=== PATIENT | male | born 1935 | race Caucasian/White ===

== ENCOUNTER 2017-05-01 07:46 | Day surgery (SDC) | payer MEDICARE, OTHER ==
--- NOTE | 2017-04-27 12:46 | PCM.ANEPRE ---
Anesthesia Pre-Op Review Reason for Review: cardiac hx Additional Comments 81 y/o male, who needs and AV fistula, with right heart failure and anasarca and ESRD. 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 Pt is optimized as much as possible. Will ask that diuretics be taken day of surgery. Dr. Gino Ramsey can do this under local with sedation. Ok to proceed. Chart Reviewed by: Devante Edwards MD Apr 27, 2017 12:46
[~2017-05-01] VITALS: Ht 182.9 cm; Wt 103.2 kg
[~2017-05-01 07:46] MED LIST: ACET-2605 PO; ASPI-973 PO; CALC0.257 PO; CeFAZolin 2 Gm/50 mL D5W IV Premix IV SCH; FIBERWELL; FINA5TAB9 PO; HYDR-3825 PO; INSU100V7 SUBQ; LEVO175T5 PO; LORA1TAB PO; MAGN250T29 PO; METO25TA6 PO; OXYB5TAB PO; PRAM1TAB3 PO; TAMS0.4C98 PO; TORS20TA3 PO; TRAM50TA2 PO; ZINC56OI2 TOP
[2017-05-01] MEDS ORDERED: fentaNYL-PF 50 mCg/mL 2 mL Inj ONE (07:47)
[2017-05-01] MEDS ORDERED: Phenylephrine/NS-PF 100 mCg/mL 5 mL Syringe IVPUSH ONE (07:47)
[2017-05-01] MEDS ORDERED: Propofol 10,000 mCg/mL 20 mL Inj ONE (07:47)
[2017-05-01] MEDS: 0.9% Sodium Chloride 500 ML IV SCH ×2 (08:00→10:49)
[2017-05-01 08:45] VITALS: BP 119/66; PULSE 74; RESP 18; O2SAT 94
[2017-05-01] MEDS ORDERED: tylenol PO (09:16)
[2017-05-01] MEDS ORDERED: Lactated Ringer's 1,000 ML IV SCH (10:08)
[2017-05-01] MEDS ORDERED: 0.9% Sodium Chloride 250 ML IV PRN (10:08)
--- NOTE | 2017-05-01 10:08 | PCM.HPANE ---
Patient Data Surgeon Admitting Provider: Attending Provider:Gino Ramsey MD Primary Care Physician:Butch Bradley MD Other Provider:María Elena Ambrocio Anesthesia Reason for Visit End-Stage Renal Failure Ht/WT & BMI Height (Feet): 6 Height (Inches): 0.00 Weight (Kilograms): 103.2 Body Mass Index 30.00 Allergies Coded Allergies: No Known Drug Allergies (Verified Allergy, Unknown, 12/22/16) Past Anesthesia History Anesthesia History: Denies:: Abnormal Airway, Anesthesia Reactions, Difficult Intubation, Fam Anesthesia Reaction, Fam Malignant Hypertherm, Malignant Hyperthermia Diabetes History Hx Diabetes?: Yes Type of Diabetes: Type II Glycemic Control: Insulin Dependent Current Bedside Blood Glucose: 94 MRSA MRSA: No Medications Blood Thinner: Aspirin Hypertension Medication: Yes Home Meds Incl Beta Mulu: Yes Previous Beta Mulu Dose >24: Previous Dose <24 Hours Reported Medications [tylenol] No Conflict [id number] Mg PO prn 05/01/17 [fiberwell] No Conflict Check1 Tab DAILY 04/27/17 Acetaminophen/Diphenhydramine (Tylenol Pm Ex-Strength Caplet)500 Mg-25 Mg Tablet1 Each PO PRN For Pain 04/27/17 Torsemide 20 Mg Myqrlc04 Mg PO DAILY 30 Days Ref 0 04/27/17 Tamsulosin (Flomax)0.4 Mg Capsule0.4 Mg PO DAILY Ref 0 04/27/17 Pramipexole Dihydrochloride (Mirapex)1 Mg Tablet1 Mg PO BID 04/27/17 Oxybutynin Chloride ER 5 Mg Tab.er.245 Mg PO DAILY Ref 0 04/27/17 Metoprolol Tartrate 25 Mg Tttzeg08.5 Mg PO BID 30 Days Ref 0 04/27/17 Magnesium Oxide (Magnesium)250 Mg Ikzmhx580 Mg PO DAILY 04/27/17 Levothyroxine 175 Mcg Oiwegd629 Mcg PO DAILY Ref 0 04/27/17 Insulin Glargine (Lantus U100 Insulin Vial)100 Unit/Ml Vial50 Unit SUBQ DAILY # 1 VIAL Ref 0 04/27/17 Finasteride 5 Mg Tablet5 Mg PO DAILY 30 Days Ref 0 04/27/17 Zinc Oxide (Desitin)60 Gm Cream..g.1 Applic TOP PRN PRN skin irritation #1 TUBE Ref 0 04/27/17 Discontinued Reported Medications Tramadol 50 Mg Ixexam56 Mg PO Q8H PRN For Pain Ref 0 04/27/17 Torsemide 20 Mg Qpfgvt84 Mg PO DAILY PRN wt gain greater than 2 pounds 30 Days Ref 0 04/27/17 Lorazepam 1 Mg Tablet1 Mg PO TID PRN For Anxiety Ref 0 04/27/17 Hydrocodone-Acetaminophen 7.5-325 mg 1 Each Tablet1 Tablet PO Q4H PRN For Pain Ref 0 04/27/17 Calcitriol (Rocaltrol)0.25 Mcg Capsule0.25 Mcg PO DAILY 04/27/17 Aspirin 81 Mg Wakrii20 Mg PO DAILY Ref 0 04/27/17 Zinc Oxide (Desitin)60 Gm Cream..g.1 Applic TOP PRN PRN For Laceration #1 TUBE Ref 0 12/21/16 Calcitriol (Rocaltrol)0.25 Mcg Capsule0.25 Mcg PO DAILY 12/21/16 Docusate Sodium (Colace)100 Mg Ezmcoct84 Mg PO TID PRN For Constipation Ref 0 12/21/16 Tramadol 50 Mg Diyxpk56 Mg PO Q8H PRN For Pain Ref 0 09/19/16 Acetaminophen 500 Mg Tablet1,000 Mg PO DAILY PRN For Pain 09/19/16 Tamsulosin (Flomax)0.4 Mg Capsule0.4 Mg PO DAILY Ref 0 09/19/16 Pramipexole Dihydrochloride 1 Mg Tablet1 Mg PO BID 09/19/16 Oxybutynin Chloride ER 5 Mg Tab.er.245 Mg PO DAILY Ref 0 09/19/16 Insulin Aspart (NovoLOG U-100 Pen)100 Unit/Ml Insuln.pen10 Units SQ TIDWM PRN Hyperglycemia 09/19/16 Polyethylene Glycol 3350 (Miralax)17 Gm Powd.pack17 Gm PO DAILY 09/19/16 Magnesium Oxide (Magnesium)250 Mg Xuldso121 Mg PO DAILY 09/19/16 Lorazepam 1 Mg Tablet1 Mg PO Evening PRN For Insomnia Ref 0 09/19/16 Levothyroxine 175 Mcg Envjkc062 Mcg PO DAILY Ref 0 09/19/16 Insulin Glargine (Lantus U100 Solostar Insulin Pen)100 Unit/1 Ml Insuln.pen40 Units SQ MORNING #15 09/19/16 Hydrocodone-Acetaminophen 7.5-325 mg 1 Each Tablet1 Tablet PO Q6H PRN For Pain Ref 0 09/19/16 Finasteride 5 Mg Tablet5 Mg PO daily/pm 30 Days Ref 0 09/19/16 Inulin/Sorbitol (Fiber Choice Chewable Tablet)1.5 Gram Tab.chew1.5 Gm PO DAILY 09/19/16 Aspirin 81 Mg Bncgwd16 Mg PO DAILY PRN For Pain Ref 0 09/19/16 Discontinued Scripts Torsemide 20 Mg Ekhpik76 Mg PO BID #80 TABLET Ref 0 Prov:Warner Lim MD 09/22/16 Metoprolol Tartrate 25 Mg Fffnoz92.5 Mg PO BID #20 TABLET Ref 0 Prov:Warner Lim MD 09/22/16 History History of ENT Problems?: Yes HEENT History: Positive for:: Hearing Problem Denies:: Abnormal Airway Cataracts Difficult Intubation Dysphagia Glaucoma Sinus Problem TMJ Denture Type: Full- Upper Full- Lower Teeth Condition: Within Normal Limits Hx of Heart Problems?: Yes Cardiovascular History: Positive for:: Cardiac Surgery (MVR and Bypass 1998) Congestive Heart Failure Edema (anasarca) Heart Murmur Hypertension Denies:: Chest Pain Valvular Heart Disease (mitral valve replacement, last echo 02/2017- ef 55-60%) Other Cardiac History: Echo reviewed. < 4METS. Hx of Respiratory Problem?: Yes Respiratory History: Positive for:: Chest Surgery (open heart) Use of C-PAP Machine (per , intolerant of CPAP) Denies:: Asthma Dyspnea Oxygen Administration Pneumonia Tuberculosis Hx Neurologic Problems?: Yes Neurological History: Positive for:: CVA (possible "small strokes") Dizziness (First thing in the morning) Denies:: Multiple Sclerosis Parkinson's Disease Seizures Other Neurological Pertinent: recent fall with hitting head, scalp contusion- states ED visit to [facility] with CT- no treatment, no LOC with fall Hx of GI Problems?: Yes Hx of Problems?: Yes (ESRD) Genitourinary History: Positive for:: HX of Hemodialysis (3xweekly in [place] thru tunnel cath, ESRF) Male Hx: Denies:: Prostate Problems Scrotal Mass Testicular Surgery Skin History: Positive for:: History Skin Disorders? (skin sores arms from scratching ) Hx Musculoskeletal Problems?: Yes Musculoskeletal History: Positive for:: Back Injury (scoliosis, states steroid injection hx ) Musculoskeletal Trauma (repetitive falls- hip injury- non operative= pt current uses w/c) Osteoarthritis Denies:: Fibromyalgia Joint Replacement Myasthenia Gravis Systemic Lupus Hx of Psycho/Social Problems?: No Psycho Social History: Positive for:: Anxiety (lorazepam prn) Hx Depression (not treated at this time) Hx Surgeries?: Yes (CABG, MVR) Hx Any Other Health Problems?: Yes Other History: Positive for:: Hospitalization Thyroid Disease Denies:: Cancer History Blood Transfusions: Positive for:: Blood Transfusions Denies:: Blood Transfuse Reaction Hx Diabetes: YesBedside Blood Glucose: 94 Hx Alcohol Use: NoHx Substance Use: No Smoking Status: Former Smoker Have You Smoked inLast 12 mo: No Stop/Bang P-Blood Pressure: treated: Yes B- Body Mass Index > 35 kg/m2: No A- Age over 50: Yes N- Neck Large Circumference: No G- Gender Male: Yes SUSANA Risk Assessment: High Risk, =/>3 Yes Risk Assessment Category Category 1A: Patient has history of documented sleep apnea, and HAS NOT received any narcotic, sedative or anesthesia administration during this stay. Category 1B: Patient has history of documented sleep apnea, and HAS received any narcotic , sedative or anesthesia administration during this stay Category 2: Patient has SUSPECTED Obstructive Sleep Apnea, and HAS received any narcotic , sedative or anesthesia administration during this stay. Category 3: Patient has SUSPECTED Obstructive Sleep Apnea and HAS NOT received narcotic, sedative or anesthesia administration during this stay. Category 4: Outpatient in Procedural Areas with known sleep apnea or who screen positive for High Risk via the STOP/BANG questionnaire. Exam Exam Vital Signs Vital Signs Date Time Temp Pulse Resp B/P Pulse Ox O2 Delivery O2 Flow Rate FiO2 05/01/17 08:45 35.6 74 18 119/66 94 Room Air 05/01/17 08:45 CPAP/BIPAP General Appearance: Alert, Oriented X3, Cooperative, Other (very [place], needs redirection) HEENT/AIRWAY: MP 3 Lungs: Clear to Auscultation, Normal Air Movement Heart: Regular Rate/Rhythm Meds/Labs/Diagnostics Admission Meds Current Medications Sodium Chloride (Normal Saline) 500 ml @ 10 mls/hr Q24H IV Last administered on 05/01/17t 08:00; Start 05/01/17 at 05:00; Stop 05/03/17 at 06:59 Bedside Blood Glucose: 94 Labs Test 05/01/17 08:52 Plan Impression Patient chart reviewed, patient interviewed and anesthestic plan with risks, benefits, and alternatives discussed, and informed consent obtained. NPO per Anesth. Guidelines: Yes ASA Physical Status: ASA3 Severe Disease Anesthetic Plan: MAC Bene/Risks/Altern/Consents: Yes HP Complete Prior to Induction: Yes Alonso Jenkins MD May 01, 2017 09:08
[2017-05-01] MEDS ORDERED: Labetalol 5 mg/mL 4 mL Inj IV PRN (10:10)
[2017-05-01] MEDS ORDERED: Phenylephrine 10,000 mCg/mL Inj IVPUSH PRN (10:10)
[2017-05-01] MEDS ORDERED: EPHEDrine Sulfate 50 mg/mL Inj IVPUSH PRN (10:10)
[2017-05-01] MEDS ORDERED: Ondansetron 2 mg/mL 2 mL Inj IVPUSH PRN (10:10)
[2017-05-01] MEDS ORDERED: Atropine 0.4 mg/mL Inj IVPUSH PRN (10:10)
[2017-05-01] MEDS ORDERED: fentaNYL-PF 50 mCg/mL 2 mL Inj IVPUSH PRN (10:10)
[2017-05-01] MEDS ORDERED: Bupivacaine-MPF 0.5% 30 mL Inj INFILTRATE ONE (10:48)
[2017-05-01] MEDS ORDERED: Heparin 1,000 Unit/mL 10 mL Inj IRRIGATION ONE (10:49)
[2017-05-01] MEDS ORDERED: Papaverine 30 mg/mL 2 mL Inj XX ONE (11:37)
[2017-05-01] MEDS ORDERED: HYDROcodone-APAP 5-325 mg Tablet PO PRN (13:25)
[2017-05-01 13:30] VITALS: BP 110/64; PULSE 75; RESP 16; O2SAT 98
[2017-05-01 13:39] VITALS: BP 110/67; PULSE 74; RESP 16; O2SAT 100
--- NOTE | 2017-05-01 13:46 | PCM.ANEP1 ---
Post Anesthesia PACU Phase 1 Assessment Vital Signs Vital Signs Date Time Temp Pulse Resp B/P Pulse Ox O2 Delivery O2 Flow Rate FiO2 05/01/17 13:39 74 16 110/67 100 Simple Mask 10 05/01/17 13:30 36.3 75 16 110/64 98 Simple Mask 15 05/01/17 08:45 35.6 74 18 119/66 94 Room Air 05/01/17 08:45 CPAP/BIPAP Anesthetic Administered: MAC Level of Alertness: Sleepy, easy to arouse MEJIAS's with Equal Strength: Yes Pain: No Nausea or Vomiting: No CV Function & Hydration Stable: Yes Airway Device: Oxygen Delivery: Simple Mask Lungs: Clear to Auscultation, Normal Air Movement PACU Phase 2 Assessment Complications: No Follow up Care: N/A Patient Instructions Provided: N/A Alonso Jenkins MD May 01, 2017 13:46
[2017-05-01 14:00] VITALS: BP 106/60; PULSE 70; RESP 16; O2SAT 100
--- NOTE | 2017-05-01 14:37 | OP ---
[address] [address] OPERATIVE REPORT PATIENT: ARNLADO ROBISON : 1935 MR#: [id number] ADMIT: 05/01/2017 JOB ID: [id number] DATE OF SURGERY: 05/01/2017 PREOPERATIVE DIAGNOSIS(ES): End-stage renal failure. POSTOPERATIVE DIAGNOSIS(ES): End-stage renal failure. PROCEDURE: Right brachiocephalic arteriovenous fistula. SURGEON: Gino Ramsey MD ASSISTANTS: Emmie Montgomery PA-C and Vito Rees PA-C INDICATIONS: An 81-year-old man who has end-stage renal failure. He is being dialyzed through a tunneled catheter. I saw him six months ago, at which time, he was uncertain if he wanted to go through dialysis. He subsequently did start on dialysis. He has right heart failure and has had inadequate right upper arm basilic vein and a borderline right upper arm cephalic vein. But on physical examination, his cephalic vein did seem adequate. He subsequently has decided to have a fistula, and so after discussing options with the patient, it was elected to proceed first with right brachiocephalic AV fistula. FINDINGS: The cephalic vein in the antecubital fossa was adequate. He had an arterial Doppler signal in his right upper arm cephalic vein at the conclusion of the procedure. He had an easily palpable right radial pulse. He did have oozing from multiple tiny branches of his vein; perhaps because of his previous elevated right-sided pressures from his right ventricular failure. DESCRIPTION OF PROCEDURE: At the beginning and end of the operation, the SCOAP checklist was completed. He received deep sedation of local anesthesia with 1% lidocaine and 0.5% bupivacaine. Using Betadine, he was prepped and draped in usual fashion and he received preoperative antibiotics. A right antecubital incision was made. The vein was identified and dissected down to the distal branch point. He actually had a "H" pattern of his antecubital veins. I elected to preserve the distal inflow into the basilic vein, but to do so, there was a common wall of the basilic and cephalic branches. After getting proximal and distal control of both the cephalic and basilic vein, I divided this common wall and then with 6-0 Prolene repaired the basilic wall. I ultimately used this opening of the cephalic vein and the distal branch as the cook for the anastomosis. The distal branches of the cephalic branch were ligated with 3-0 silk. The vein was divided and flushed with heparinized saline. The artery was exposed, controlled proximally and distally with vessel loops and small branches divided with clips. The artery was opened longitudinally, flushed proximally and distally with heparinized saline. The anastomosis to the cook of the cephalic vein was then performed with running 6-0 Prolene. [place] through the anastomosis, I flushed the vein with papaverine. After completing the anastomosis, there was first forward flushing into the vein and then backward flushing into the vein followed again by repeating that process and then forward flow was resumed into the hand with results as stated above. As stated above, there was bleeding from small branches of the vein which I think in most cases would have thrombosed. But, I do think that this might be reflective of chronic right-sided elevated venous pressures. These were controlled with 6-0 Prolene. Clips placed transversely and cautery. I also used FloSeal. The incision was closed with running 5-0 Vicryl. Dermabond was placed over the incision. The estimated blood loss was 30 cc. There were no apparent complications. The final sponge, needle and instrument counts were announced as correct and he was returned to recovery in stable condition. Critical assistance was provided by Emmie Montgomery PA-C and NINO Taylor, which will allow completion of the operation.
== END 2017-05-01 23:59 | disposition home or self-care (01) ==
LOC: SAS 07:46
PROVIDERS: ATTEND Surgery
DX: I13.2 Hypertensive heart and chronic kidney disease with heart failure and with stage 5 chronic kidney disease, or end stage renal disease (principal); N18.6 End stage renal disease; I50.9 Heart failure, unspecified; G47.30 Sleep apnea, unspecified; E10.9 Type 1 diabetes mellitus without complications; E03.9 Hypothyroidism, unspecified; E78.2 Mixed hyperlipidemia; Z95.1 Presence of aortocoronary bypass graft; Z99.2 Dependence on renal dialysis; Z95.2 Presence of prosthetic heart valve; Z87.891 Personal history of nicotine dependence; Z79.4 Long term (current) use of insulin; Z79.82 Long term (current) use of aspirin
CPT/HCPCS: 36415; 36818; 84132; J0690; J1644; J2250; J2370; J3010; J7040; J7050

== ENCOUNTER 2017-05-05 15:12 | Emergency (ER) | payer MEDICARE, OTHER ==
[~2017-05-05] VITALS: Ht 177.8 cm; Wt 104.5 kg
[~2017-05-05 15:12] MED LIST changes: -ASPI-973 PO; -CALC0.257 PO; -CeFAZolin 2 Gm/50 mL D5W IV Premix IV SCH; -HYDR-3825 PO; -LORA1TAB PO; -TRAM50TA2 PO; +tylenol PO
[2017-05-05 15:14] VITALS: BP 111/65; PULSE 61; RESP 20; O2SAT 98
--- NOTE | 2017-05-05 15:43 | ED.REPORT ---
HPI-General Illness Date of Service May 05, 2017 ED Provider: Himanshu Coffman MD An 81 year old, hard of hearing male with a history of type I diabetes mellitus , end stage kidney failure s/p hemodialysis, CVA, CHF, hypertension and a mitral valve replacement presents to the ED following a fistula disfunction that occurred earlier this morning at dialysis. Patient had a right brachiocephalic AV fistula for dialysis performed on 05/01. He did receive his dialysis this morning and was sent to the ED for an ultrasound to identify the fistula dysfunction. also reports that the patient has been experiencing right leg, hip pain and weakness secondary to a recent GLF. Patient has had 3 GLF in the past week due to difficulty ambulating. He has also reportedly been "picking at a bug bite" with the insulin needle to relieve the discomfort. Nursing Notes Stated Complaint: ULTRASOUND FOR RIGHT LEG FISTULA Chief Complaint: General Complaint Nursing Notes Reviewed: Yes Allergies: Coded Allergies: No Known Drug Allergies (Verified Allergy, Unknown, 12/22/16) Scheduled ([fiberwell]) 1 TAB DAILY ([tylenol]) 500 MG PO prn Finasteride (Finasteride) 5 Mg Tablet 5 MG PO DAILY Insulin Glargine (Lantus U100 Insulin Vial) 100 Unit/Ml Vial 50 UNIT SUBQ DAILY Levothyroxine (Levothyroxine) 175 Mcg Tablet 175 MCG PO DAILY Magnesium Oxide (Magnesium) 250 Mg Tablet 250 MG PO DAILY Metoprolol Tartrate (Metoprolol Tartrate) 25 Mg Tablet 12.5 MG PO BID Oxybutynin Chloride ER (Oxybutynin Chloride ER) 5 Mg Tab.er.24 5 MG PO DAILY Pramipexole Dihydrochloride (Mirapex) 1 Mg Tablet 1 MG PO BID Tamsulosin (Flomax) 0.4 Mg Capsule 0.4 MG PO DAILY Torsemide (Torsemide) 20 Mg Tablet 40 MG PO DAILY Scheduled PRN Acetaminophen/Diphenhydramine (Tylenol Pm Ex-Strength Caplet) 500 Mg-25 Mg Tablet 1 EACH PO PRN For Pain Zinc Oxide (Desitin) 60 Gm Cream..g. 1 APPLIC TOP PRN PRN PRN skin irritation General Time Seen by : 15:42 Chief Complaint Other (fistula disfunction) Hx Obtained From: Patient Arrived By: Walk-in Sudden in Onset?: No Onset Occurred: 9 - 12 hours ago Symptom Duration: Since onset Location: : Arm right Quality: Painful Radiation: : Arm right Severity: Current: Mild Severity: Maximum: Moderate Associated with: Reports: Pain Pertinent Negative: Pt denies other symptoms Recent Healthcare: Recent doctor visit Past Medical History Past Medical History 1. CVA 2. Type I diabetes mellitus 3. End stage kidney failure 4. Congestive Heart Failure 5. Hypertension 6. Anxiety 7. Depression 8. C-PAP use at home 9. Osteoarthiritis 10. Chronic edema Past Surgical History Mitral valve replacement Open Heart surgery Right brachiocephalic arteriovenous fistula Smoking History Former Smoker Social History Other Social History: Good social support, , Local resident Ambulatory Status Wheelchair Review of Systems RUE bruit at dialysis this morning. Multiple irritated bug bites. Full Review of Systems Musculoskeletal: Reports: Extremity pain (right leg pain ), Joint pain (right hip pain ) Complete sys rev & neg: except as marked. Physical Exam Vital Signs Vital Signs Date Time Temp Pulse Resp B/P Pulse Ox O2 Delivery O2 Flow Rate FiO2 05/05/17 17:42 36.9 63 109/57 97 Room Air 05/05/17 15:14 36.6 61 20 111/65 98 Room Air Initial VS: Unavailable Head / Eyes: Atraumatic, Normocephalic, PERRL Neck: Supple, Non-tender, Full range of motion Extremities: Vascular intact, Neuro intact, No swelling, No tenderness Skin: Warm, Dry, No cyanosis Neurologic: Alert, Oriented, Nonfocal Psychiatric: Mood/affect normal, Behavior normal, Normal thought content General/Constitutional: Awake, Alert, No acute distress, Well appearing, Well developed Head / Eyes: Atraumatic, Normocephalic, PERRL Respiratory / Chest: Atraumatic, Breath sounds NL, Breath sounds = bilat, No respiratory distress Cardiovascular: Heart rate NL, Regular rhythm Heart Sounds / Murmur: Positive: Systolic murmur present.. (II/) Lower Ext Edema: Positive: Bilateral 2+ (Chronic) Abdomen: Atraumatic, Soft, Non-tender Re-Eval/Medical Decision Time of Eval: 16:25 Re-Evaluation/Progress Note: Pt is informed of the plan to obtain an US. All questions about the intended treatment plan are addressed. He understands and agrees with the plan. Counseled Regarding: Diagnosis, Lab results, Need for follow-up, When/why to return to ED Discharge & Departure Shift Change Sign-Out Patient Care Transferred: Yes Discussed Complaint(s): Yes Imaging Studies: Done, await radiologist Dr. Finley Primary Impression: AV fistula occlusion Encounter type: initial encounter Qualified Code: T82.898A - Other specified complication of vascular prosthetic devices, implants and grafts, initial encounter Additional Impression: Pelvic pain Disposition: Home Discharge Condition All VS Reviewed: Yes Condition: Improved Referrals: Butch Bradley MD (PCP) Care Transferred to: Dr. Finley Care Transferred at: 18:00 Kenyatta Attestation Portions of this note were transcribed by Bolivar Madsen. I, Dr. Coffman personally performed the history, physical exam and medical decision-making; I reviewed and confirmed the accuracy of the information in the transcribed note. Signed by: Kenyatta Hummel, 05/05/17 1800. copies to: Butch Bradley MD, Kirk H MD May 05, 2017 15:43 BOLIVAR MADSEN May 05, 2017 15:45
[2017-05-05 17:42] VITALS: BP 109/57; PULSE 63; O2SAT 97
--- NOTE | 2017-05-05 18:12 | DRSVH ---
PROCEDURE: CT PELVIS WITHOUT CONTRAST ([id number]) INDICATIONS: trauma TECHNIQUE: Noncontrast 3 mm axial sections acquired through the bony pelvis, with coronal and sagittal reformatt ing. COMPARISON: [facility], , [id number] W PEL IF PERFORMED, 04/20/2017, 18:56. FINDINGS: Image quality: Excellent. Bones: There is a mildly comminuted avulsion fracture of the right greater trochanter along the inser tion of the gluteus medius tendon. There is proximal displacement by approximately 2.5 cm. There ar e also minimally displaced fractures of the right sacral ala extending to the sacroiliac joint. Soft tissues: There is edema and fluid associated with the avulsion fracture of the greater trochante r. No definite joint effusions. No free intraperitoneal fluid. There is ectasia of the visualized aorta and iliac arteries. IMPRESSION: 1. Avulsion fracture of the right greater trochanter. 2. Right sacral alar fractures. Dictated by: Ilia Valencia M.D. on 05/05/2017 at 18:05 Approved by: Ilia Valencia M.D. on 05/05/2017 at 18:11
[2017-05-05 20:45] VITALS: BP 122/71; PULSE 73; O2SAT 97
--- NOTE | 2017-05-05 21:14 | DRSVH ---
PROCEDURE: US AV FISTULA MAP ARM, RIGHT INDICATIONS: CHECK FOR OCCLUSION IN FISTULA TECHNIQUE: Color and pulse Doppler interrogation was performed of the upper extremity fistula with image documen tation. COMPARISON: [facility], US, US ARTERY ARM DPLX BILAT, 10/16/2016, 15:01. [facility] Ultrasound, US, US VENOUS ARM DPLX BILAT, 10/16/2016, 15:01. FINDINGS: The proximal, mid, and distal fistula appear patent with appropriate velocities and waveforms. The b rachial artery demonstrates patent flow proximal and distal to the fistula with normal wave forms. IMPRESSION: 1. No evidence of fistula occlusion. Dictated by: Ilia Valencia M.D. on 05/05/2017 at 21:00 Approved by: Ilia Valencia M.D. on 05/05/2017 at 21:12
== END 2017-05-05 20:46 | disposition home or self-care (01) ==
LOC: SED 15:12
DX: T82.898A Other specified complication of vascular prosthetic devices, implants and grafts, initial encounter (principal); R10.2 Pelvic and perineal pain; Y84.8 Other medical procedures as the cause of abnormal reaction of the patient, or of later complication, without mention of misadventure at the time of the procedure; Y93.9 Activity, unspecified; Y92.9 Unspecified place or not applicable; Y99.9 Unspecified external cause status; I13.2 Hypertensive heart and chronic kidney disease with heart failure and with stage 5 chronic kidney disease, or end stage renal disease; I50.9 Heart failure, unspecified; N18.6 End stage renal disease; E10.22 Type 1 diabetes mellitus with diabetic chronic kidney disease; Z86.73 Personal history of transient ischemic attack (TIA), and cerebral infarction without residual deficits; Z87.891 Personal history of nicotine dependence; Z79.4 Long term (current) use of insulin; Z79.899 Other long term (current) drug therapy

== ENCOUNTER 2017-05-16 14:47 | Inpatient (IN) | payer MEDICARE, OTHER ==
[~2017-05-16] VITALS: Ht 177.8 cm; Wt 99.7 kg
[2017-05-16 17:22] VITALS: BP 121/78; PULSE 89; RESP 18; O2SAT 94
[2017-05-16] MEDS ORDERED: ACET-171 PO (17:39)
[2017-05-16] MEDS ORDERED: INSU100V7 SUBQ (17:39)
[2017-05-16] MEDS ORDERED: TRAM50TA2 PO (17:39)
[2017-05-16] MEDS ORDERED: FINA5TAB9 PO (17:39)
[2017-05-16] MEDS ORDERED: Ondansetron 2 mg/mL 2 mL Inj IVPUSH PRN (17:45)
[2017-05-16] MEDS ORDERED: Alum-Mag Hydrox-Simeth 30 mL Suspension PO PRN (17:45)
[2017-05-16] MEDS ORDERED: Polyethylene Glycol (PEG) 17 Gm Powder PO PRN (17:45)
[2017-05-16] MEDS ORDERED: OXYM30SP18 NS (17:46)
--- NOTE | 2017-05-16 18:16 | NUR ---
Arrival to [facility] room 1014 Pt transferred to [facility] from [facility]. Pt has fractured pelvis and has limited mobility. Pt is very [place], likes to "pick" at his skin, leaving skin tears. Pt is on dialysis, has a failed right AC fistula and has right chest HD cath. Pt is confused, bed alarm placed for safety
[2017-05-16 18:48] LABS: BASOPHILS % (AUTO) 0.8 % (0-3); EOSINOPHILS % (AUTO) 4.8 % (0-5); MONOCYTES % (AUTO) 11.9 % (4-12); Mean Corpuscular Hemoglobin 34.2 pg (27.0-35.0); Mean Corpuscular Volume 104.9 fL (81-100); NEUTROPHILS % (AUTO) 63.6 % (40-74); Platelet Count 112 bil/L (150-400)
[2017-05-16 20:31] VITALS: BP 125/68; PULSE 84; RESP 18; O2SAT 94
--- NOTE | 2017-05-16 20:36 | PCM.HPMED ---
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 Patient was transferred to us from [facility] ED due to patient's need for dialysis at this cannot be accomplished at their facility. Patient is really demented and unable to give a complete history. The patient repeatedly states that he is "confused" and would like to know why he is being held in long term. He states that he knows who he is. He was unaccompanied time of interview. Per report from [facility] patient had a difficult time getting home from dialysis and was unable to get out of the car yesterday. Reportedly the patient excluded himself into the house the patient's states that she found him confused this morning and was not able to wake him up. She states that this has happened frequently in the mornings to patient not being compliant with his CPAP machine. The patient is quite concerned about his inability to care for himself and fall risk. [facility] his bowels were stable. Temperature was 36.4, heart rate was 83, respiratory rate is 18, blood pressure 120/66, O2 saturations 96% on room air. Laboratory evaluation revealed a WBC count 5.4 hemoglobin 12.7 platelet count of 120 and a negative troponin. Two-view chest x -ray revealed patchy opacity at the left lung base which may represent pneumonia. Patient was treated for a presumed and was treated with azithromycin and Rocephin. He was transferred to our hospital due to his need for dialysis. Review of Systems: The patient is unable to have a competency review of systems due to his poor cognition. Allergies Coded Allergies: No Known Drug Allergies (Verified Allergy, Unknown, 12/22/16) Home Medications Finasteride [place] levothyroxine 175 g Oxybutynin Pramipexole Tramadol Magnesium 50 mg by mouth 3 times a day Tamsulosin Afrin spray Acetaminophen 1-5 units of insulin aspart Lantus 30 units subcutaneous daily Metoprolol tartrate 12.5 mg by mouth twice daily PMH His heart failure Hypertension Bowel disorder Sleep apnea on CPAP 50 diabetes Hypothyroidism ESRD on dialysis Frequent falls Dementia Surgical History Coronary artery bypass graft Valve replacement Femoropopliteal bypass cholecystectomy Knee replacement Family History Unable to obtain due to patient's poor cognition. Social History Hx Alcohol Use: No Hx Substance Use: No Hx Tobacco Use: No Smoking Status: Never Smoker Exam Vital Signs Vital Sign - Last Date Time Temp Pulse Resp B/P Pulse Ox O2 Delivery O2 Flow Rate FiO2 05/16/17 17:22 36.4 89 18 121/78 94 Room Air Exam General: No acute distress, well-developed, well-nourished, elderly male HEENT: Normocephalic, atraumatic. External ears without defect. Pupils equal, round, and reactive to light and accommodation. Anicteric sclerae, moist conjunctivae, and no lid lag. Oropharynx free of erythema and cobble stoning with moist mucosa. Neck: Supple with full range of motion. No jugular venous distension. No bruits. No lymphadenopathy or thyromegaly. Cardiovascular: Regular rate and rhythm with a systolic crescendo decrescendo murmur Pulmonary: Clear to auscultation bilaterally with no crackles, wheezes, or rhonchi. Normal respiratory effort with no use of accessory muscles. Abdomen: Bowel tones present. Soft, nontender, nondistended. No hepatosplenomegaly or masses appreciated. Extremities: No clubbing, cyanosis, edema, or lymphadenopathy appreciated. Skin: Normal temperature, turgor, and texture; no rash, ulcers, or subcutaneous nodules appreciated. Neurological: Cranial nerves grossly intact. Normal muscle strength, tone, and bulk. Reflexes, coordination, and sensory function within normal limits. Psychiatric: Normal mood and affect. Oriented only to self. 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 Patient was transferred to us from [facility] ED due to patient's need for dialysis at this cannot be accomplished at their facility. # Community acquired pneumonia, present on admission, active -Continue azithromycin and ceftriaxone. -CXR consistent with pneumonia -Afebrile, no leukocytosis, patient has change in mental status from baseline. Procalcitonin elevated - will call [facility] to see if any microbiology tests sent prior to antibiotics # Pelvic and trochanter fracture, present on admission, active -Morphine as needed for pain -Physical therapy evaluation # altered mental state on baseline dementia due to CAP -treatment as above # Chronic issues, present on admission: # SUSANA on CPAP -We will ask to bring home CPAP # ESRD on hemodialysis TTS -Nephrology should be notified tomorrow for dialysis # Advanced dementia -Social work consultation # Congestive heart failure, not in exacerbation # CAD s/p CABG -Continue home medications # Type 2 diabetes, insulin using -Continue home medications at a 30% reduction # Frequent falls and debilitation -Physical therapy evaluation CODE STATUS: DNR/DNI Patient is admitted under inpatient status with expected length of stay greater than 2 midnights due to severity of presenting symptoms, risk of adverse event, and complexity of treatment plan. VTE Prophylaxis: Sub-Q Heparin (Unfractionated) Resuscitation Status: DNR/DNI:Do Not Resuscitate/Intubate Time spent Patient was seen and examined with resident , I agree with the history , exam, assessment and plan as outlined above copies to: Butch Bradley MD, Viktoriya DO May 16, 2017 20:15 José Miguel Bello MD May 17, 2017 10:30
[2017-05-16] MEDS ORDERED: Glucose 40% Oral Gel 15 Gm Tube PO PRN (21:10)
[2017-05-16] MEDS: Insulin LISPRO 300 Unit/3 mL Inj SUBQ SCH (22:00)
[2017-05-16] MEDS ORDERED: 0.9% Sodium Chloride 100 ML ONE (22:53)
[2017-05-16] MEDS: cefTRIAXone Inj 2,000 MG in Dextrose 5% Minibag Plus 50 ML IV SCH (22:57)
[2017-05-17 00:14] VITALS: BP 148/96; PULSE 117; RESP 20; O2SAT 97
[2017-05-17] MEDS: HYDROmorphone 1 mg/mL Inj IVPUSH PRN ×2 (00:43→21:16)
[2017-05-17] MEDS: Heparin 5,000 Unit/mL Inj SUBQ SCH ×4 (00:43→23:41)
--- NOTE | 2017-05-17 07:49 | NUR ---
Confusion Pt has increase in confusion and agitation. PRN morphine given, not effective. Pt pulled out 1 IV, removed brief, clothing, oxygen and pulse ox monitor. Pt continued to try to get up OOB. Has pelvic fractures and very weak. Rec'd order from MD for zyprexa IM. Administered with minimal effects. Spoke to MD and requested a different pain med. Dilaudid ordered, administered and Pt was able to have relief for a short time but was still very active all night, moving in bed and trying to get up. Redirected and explained many times why he can not get up. Pt has severe dementia. Bed in low position, call light in reach, care continues.
[2017-05-17] MEDS: Insulin LISPRO 300 Unit/3 mL Inj SUBQ SCH ×4 (08:00→21:28)
[2017-05-17 08:03] VITALS: BP 127/84; PULSE 83; O2SAT 98
[2017-05-17] MEDS ORDERED: Non-Formulary Medication (Levothyroxine 175 MCG) PO SCH (08:30)
[2017-05-17 08:39] LABS: BASOPHILS % (AUTO) 0.9 % (0-3); MONOCYTES % (AUTO) 11.5 % (4-12); Mean Corpuscular Hemoglobin 34.7 pg (27.0-35.0); Mean Corpuscular Volume 103.4 fL (81-100); NEUTROPHILS % (AUTO) 55.5 % (40-74); Platelet Count 137 bil/L (150-400)
[2017-05-17 08:59] LABS: Magnesium 2.3 mg/dL (1.6-2.6)
--- NOTE | 2017-05-17 09:12 | DRSVH ---
PROCEDURE: X-RAY CHEST ONE VIEW, PORTABLE ([id number]) INDICATIONS: PNUEMONIA TECHNIQUE: One view of the chest was acquired. COMPARISON: Located Within [facility], CR, XR CHEST 2VW, 09/20/2016, 17:03. FINDINGS: Surgical changes and devices: Dialysis catheter and sternal wires are present. Lungs and pleura: Poor inspiratory effort is present. There are patchy areas of increased pulmonary v ascularity as well as increased appearance of opacity at the left base. Mediastinum: Mediastinal contours appear normal. Heart size is normal. Bones and chest wall: No suspicious bony lesions. Overlying soft tissues appear unremarkable. IMPRESSION: Poor inspiratory effort with appearance of mild left basilar/retrocardiac opacity. This m ay represent a pneumonia versus atelectasis. Dictated by: Anna Quiroz M.D. on 05/17/2017 at 9:09 Approved by: Anna Quiroz M.D. on 05/17/2017 at 9:10
--- NOTE | 2017-05-17 09:37 | DRSVH ---
PROCEDURE: X-RAY PELVIS, ONE OR TWO VIEWS ([id number]) INDICATIONS: PELVIC FRACTURE TECHNIQUE: 2 view(s) of the pelvis acquired. COMPARISON: Pelvis 04/20/2017 FINDINGS: Bones: The corticated bony density lateral to the right femoral neck appears to represent old avulsio n of the greater trochanter, unchanged from last study. No acute fracture seen. No suspicious bony le sions. The inferior sacroiliac joints appear sclerotic and irregular. Soft tissues: Visualized bowel gas pattern is normal. Vascular calcifications. IMPRESSION: 1. No acute fractures seen in the pelvis or proximal femurs. If acute fracture is suspected, CT imagi ng is suggested. 2. Remote avulsion right greater trochanter. 3. Bilateral degenerative sacroiliac arthritis. Dictated by: Mike Rose M.D. on 05/17/2017 at 9:31 Approved by: Mike Rose M.D. on 05/17/2017 at 9:35
--- NOTE | 2017-05-17 13:34 | NUR ---
Evaluation completed. Please go to "Notes" then click on "Assessments and Notes" (bottom left corner of screen). Then select appropriate discipline tab on top of screen.
[2017-05-17 13:55] VITALS: BP 119/60; PULSE 67; RESP 18; O2SAT 97
--- NOTE | 2017-05-17 14:00 | NUR ---
Dialysis Pt leave to dialysis on 1-2L NC as needed while sleeping. Sitter at bedside as pt has baseline dementia and restlessness with agitation. Addendum: 05/17/17 at 1947 by VAL PARR RN Pt returns from dialysis @ 1820 with sitter at bedside.
--- NOTE | 2017-05-17 14:17 | NUR ---
Palliative care note D/A: Palliative care referral received from Dr. Mott today. Referral is for goals of care. Note that pt is a dialysis pt who recently was admitted to [facility] for care of a trochanter and pelvic fracture. He is also known to have dementia, CHF and CAD. Pt was transferred to [facility] for care of same as well as his need for dialysis. 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 Pt spouse is Annmarie Lee and can be reached at [phone] and [phone]. His friend Jameel Carolina can be reached at [phone]. Review of chart reveals that pt has DPOA document from 2011. His first choice of decision maker is his spouse Annmarie and then Chantel Springer who can be reached at [phone]. His third choice of decision maker is Annette Benson at [phone]. P: Palliative care to follow. Mirtha MEEHAN, CCM
[2017-05-17 14:19] VITALS: BP 103/75; PULSE 74
--- NOTE | 2017-05-17 15:11 | PCM.PNMED ---
Subjective Date of Service May 17, 2017 Subjective Patient remains confused. Oriented to place only. Afebrile. No family member at bedside to describe his mental status. Exam Vital Signs Vital Sign - Last Date Time Temp Pulse Resp B/P Pulse Ox O2 Delivery O2 Flow Rate FiO2 05/17/17 13:55 36.5 67 18 119/60 97 Nasal Cannula 1.00 Intake and Output 05/16/17 05/16/17 05/17/17 Cumulative From/Thru 15:00 23:00 07:00 05/16/17 18:10 - 05/17/17 06:19 Intake Total 237 ml 50 ml 287 ml Output Total 100 ml 100 ml Balance 137 ml 50 ml 187 ml Intake Oral 237 ml 0 ml 237 ml IV Total 50 ml 50 ml Output Urine Total 100 ml 100 ml # Voids 2 2 # Bowel Movements 0 0 Exam General: No acute distress, well-developed, well-nourished, elderly male HEENT: Normocephalic, atraumatic. External ears without defect. Pupils equal, round, and reactive to light and accommodation. Anicteric sclerae, moist conjunctivae, and no lid lag. Oropharynx free of erythema and cobble stoning with moist mucosa. Neck: Supple with full range of motion. No jugular venous distension. No bruits. No lymphadenopathy or thyromegaly. Cardiovascular: Regular rate and rhythm with a systolic crescendo decrescendo murmur Pulmonary: Clear to auscultation bilaterally with no crackles, wheezes, or rhonchi. Normal respiratory effort with no use of accessory muscles. Abdomen: Bowel tones present. Soft, nontender, nondistended. No hepatosplenomegaly or masses appreciated. Extremities: No clubbing, cyanosis, edema, or lymphadenopathy appreciated. Skin: Normal temperature, turgor, and texture; no rash, ulcers, or subcutaneous nodules appreciated. Neurological: Cranial nerves grossly intact. Normal muscle strength, tone, and bulk. Reflexes, coordination, and sensory function within normal limits. Psychiatric: Normal mood and affect. Oriented only to self. IVs and Medications Medications Reviewed: Medications were reviewed in detail Lab and Diagnostics Result Diagram: 05/17/17 0810 05/17/17 0810 X-Rays, CTs and MRIs PROCEDURE: X-RAY PELVIS, ONE OR TWO VIEWS ([id number]) INDICATIONS: PELVIC FRACTURE IMPRESSION: 1. No acute fractures seen in the pelvis or proximal femurs. If acute fracture is suspected, CT imaging is suggested. 2. Remote avulsion right greater trochanter. 3. Bilateral degenerative sacroiliac arthritis Dictated by: Mike Rose M.D. on 05/17/2017 at 9:31 PROCEDURE: X-RAY CHEST ONE VIEW, PORTABLE ([id number]) INDICATIONS: PNUEMONIA IMPRESSION: Poor inspiratory effort with appearance of mild left basilar/ retrocardiac opacity. This may represent a pneumonia versus atelectasis. Dictated by: Anna Quiroz M.D. 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 Patient was transferred to us from [facility] ED due to patient's need for dialysis at this cannot be accomplished at their facility. # Community acquired pneumonia, present on admission, active -Continue azithromycin and ceftriaxone. -CXR consistent with pneumonia -Afebrile, no leukocytosis, patient has change in mental status from baseline. Procalcitonin elevated - will call [facility] to see if any microbiology tests sent prior to antibiotics # Recent Pelvic and trochanter fracture, present on admission, active -Morphine as needed for pain -Physical therapy evaluation # altered mental state on baseline dementia due to CAP -treatment as above Chronic issues, present on admission: # SUSANA on CPAP -We will ask to bring home CPAP # ESRD on hemodialysis TTS -Nephrology notified # Advanced dementia -Social work consultation # Congestive heart failure, not in exacerbation # CAD s/p CABG -Continue home medications # Type 2 diabetes, insulin using -Continue home medications at a 30% reduction # Frequent falls and debilitation -Physical therapy evaluation CODE STATUS: DNR/DNI Patient is admitted under inpatient status with expected length of stay greater than 2 midnights due to severity of presenting symptoms, risk of adverse event, and complexity of treatment plan. Disposition: Pending PT eval and recommendation. reportedly unable to care for him. May need to go to nursing home facility at least for short time VTE Prophylaxis: Sub-Q Heparin (Unfractionated) Resuscitation Status: DNR/DNI:Do Not Resuscitate/Intubate José Miguel Bello MD May 17, 2017 15:11
--- NOTE | 2017-05-17 15:29 | NUR ---
To Dialysis Pt transported via bed by staff to [facility] for dialysis with sitter at bedside.
--- NOTE | 2017-05-17 15:42 | CONS ---
[address] [address] CONSULTATION REPORT PATIENT: ARNALDO ROBISON : 1935 MR#: [id number] ADMIT: 05/16/2017 JOB ID: [id number] DATE OF SERVICE: 05/17/2017 RENAL CONSULTATION: HISTORY: The patient is an unfortunate 81-year-old white male who has a history of multiple medical problems including end-stage renal disease and advanced dementia. He was transferred from [facility] where he presented there following a fall and a possible hip fracture. He has a history of end-stage renal disease and renal consultation is being sought for further evaluation and management of his chronic kidney disease. Unfortunately the patient has advanced dementia and is unable to give me much meaningful information. Majority of the history has been obtained from the patient's chart. As noted above. He has a history of significant dementia and following a fall. There was no new fracture at that time, and he was transferred to [facility] because of lack of dialysis services at [facility]. Little other information as far as the recent history is known. Apparently, he dialyzes on Sunday, , and Sunday and today is his normal dialysis day. PAST MEDICAL HISTORY: Is significant for: 1. End-stage renal disease. 2. Diabetes. 3. Hypertension with hypertensive heart disease and hypertensive nephrosclerosis. 4. Congestive heart failure. 5. Sleep apnea. 6. Dementia. 7. Hypothyroidism. 8. Prostatic hypertrophy. 9. Osteoarthritis. PAST SURGICAL HISTORY: Is significant for: 1. Coronary artery bypass graft. 2. Some type of cardiac valve replacement. 3. Cholecystectomy. 4. Femoral/popliteal bypass graft. 5. Knee replacement. ALLERGIES: He is not allergic to any food or any medication. SOCIAL HISTORY: He denies use of alcohol, tobacco or illicit drugs. MEDICATIONS: At time of admission include finasteride, levothyroxine, oxybutynin, omeprazole, tramadol, magnesium, tamsulosin, insulin and metoprolol. FAMILY HISTORY/REVIEW OF SYSTEMS: Unobtainable because of the patient's dementia. PHYSICAL EXAMINATION: Revealed a debilitated, chronically ill appearing 81-year-old white male who was awake but unable to provide any information. He was unable to answer the simplest of questions. His blood pressure was 148/86 with a heart rate of 87. HEENT examination is remarkable for pale sclerae. Neck is supple without adenopathy, thyromegaly or jugular venous distention. Lungs showed some hyperresonance of both lung odonnell and some scattered rhonchi noted. Heart was irregularly irregular. Abdomen is soft without any tenderness, rebound, guarding, masses or hepatosplenomegaly. Extremities did not show any evidence of any clubbing, cyanosis or edema. Skin turgor is good. LABORATORY EXAMINATION: His hemoglobin today was 13.1, sodium was 142, potassium 3.9, chloride of 102, bicarbonate 23, BUN and creatinine were 37 and 3.9 respectively. IMPRESSION: 1. End-stage renal disease-dialysis dependent. 2. Diabetic nephropathy. 3. Hypertension with hypertensive heart disease and hypertensive nephrosclerosis. 4. Dementia. RECOMMENDATION: The patient is to be dialyzed today for 3.5 hours on a 2 potassium bath. No heparin, 400 blood flow, 600 dialysate flow and will try to take 1-2 L. In light of the patient's significant dementia, I would strongly urge palliative care consult and discussion with the family as far as continuation of dialysis as it does not appear to be benefitting this unfortunate patient. Once again, I would like to thank you for allowing me to participate in the care of this pleasant, but unfortunate patient. I will be following him closely with you.
--- NOTE | 2017-05-17 18:10 | NUR ---
Dialysis note: 3 1/2 hours tx 2000 ml net UF Right catheter, dsg changed, no s/s of infection noted Pls see DTR for VS details Qb 400 Heparin given O2 @ 2L via NC on Pt confused, gets restless and anxious, sitter at bedside in to visit and pt more cooperative and relaxed Catheter flushed, heparin dwelled and secured Stable condition at end of tx Report given to Pallavi HANSEN
[2017-05-17 18:24] VITALS: BP 106/64; PULSE 76; RESP 18; O2SAT 98
[2017-05-17 19:42] VITALS: BP 114/65; PULSE 80; RESP 18; O2SAT 98
[2017-05-17] MEDS: cefTRIAXone Inj 2,000 MG in Dextrose 5% Minibag Plus 50 ML IV SCH (19:47)
[2017-05-17] MEDS: Insulin GLARgine 100 Unit/mL Syringe SUBQ SCH (21:27)
[2017-05-18] MEDS: HYDROmorphone 1 mg/mL Inj IVPUSH PRN (00:54)
--- NOTE | 2017-05-18 02:39 | NUR ---
Confusion/agitation Pt showing s/sx of pain, dilaudid given with + results. Pt has baseline dementia and started shift very pleasant. As the night proceeded Pt became more and more confused, agitated and was pulling at all lines, removing clothes and brief. Sitter at bedside. All sources of agitation and confusion exhausted. Pt given IM zyprexa with minimal results. Dilaudid was given per PRN orders and Pt eventually fell asleep for short time. Continues to have sitter at bedside. Care continues
[2017-05-18 04:23] VITALS: BP 113/66; PULSE 68; RESP 14; O2SAT 99
--- NOTE | 2017-05-18 04:45 | NUR ---
Restraints Pt very confused, baseline dementia, worse at night and began pulling at lines, removing clothes and brief and trying to get OOB. Px meds have been given per orders, zyprexa was used, both only allowed Pt to rest for a few minutes at a time. All needs met, unable to redirect, continued to be agitated becoming more aggressive. Sitter at bedside. Phoned MD and rec'd order for soft restraints to be applied. Applied soft restraints to arms and 1 leg. Sitter continues to be at bedside. Pt tolerating. Care continues
[2017-05-18] MEDS: Insulin LISPRO 300 Unit/3 mL Inj SUBQ SCH ×4 (08:00→21:16)
[2017-05-18] MEDS: Heparin 5,000 Unit/mL Inj SUBQ SCH ×2 (08:04→17:58)
--- NOTE | 2017-05-18 08:37 | PCM.CONPAL ---
Date of Service May 18, 2017 Date of Hospital Admission: May 16, 2017 at 17:15 Date of Palliative Consult: May 18, 2017 Requesting Provider: José Miguel Bello MD Reason Palliative Care Consult: Other Symptoms (delirium symptom management coordinated by Dr. Bello and Dr. Hector), Goals of Care Discussion Reason for Consultation Palliative care referral received from Dr. Mott today. Referral is for goals of care. Note that pt is a dialysis pt who recently was admitted to [facility] for care of a trochanter and pelvic fracture. He is also known to have dementia, CHF and CAD. Pt was transferred to [facility] for care of same as well as his need for dialysis. Pt spouse is Annmarie Lee and can be reached at [phone] and [phone]. His friend Jameel Carolina can be reached at [phone]. Review of chart reveals that pt has DPOA document from 2011. His first choice of decision maker is his spouse Annmarie and then Chantel Springer who can be reached at [phone]. His third choice of decision maker is Annette Benson at . Hospital Unit @time of consult: Orthopedic/Surgical Care (Room 1014) Palliative Care Recommendation Summary of palliative recommendations: Symptom management (Pain/other): By my exam today, pt is actively delirious, he is inattentive to his surroundings. Also has baseline some dementia (extent unclear, given active delirium now. My plan is to ask more about his baseline when she arrives). 1. First step is to eliminate medications that may contribute to delirium: stay away from benzodiazepines. --D/C pramipexole, can cause delirium and not recommended in dialysis patients as then risk of delirium is higher. 2. Agree with anti-psychotics: prefer seroquel scheduled to olanzapine. --Start 12.5mg seroquel BID and d/c all olanzapine for now. Monitor for need for prn seroquel. Over weekend, order prn seroquel if pt has more agitation between scheduled doses. 3. Pain, can contribute to delirium is inadequately treated. Agree with opiates , but suggest d/c all IV and start scheduled low dose oxycodone (better in renal failure) --oxycodone 5mg po AC and HS with prn 5mg q 4 hour as needed for hip/ trochanter fracture pain and musculoskeletal pain. 4. Bowel regimen: advance to Senna 1 po BID scheduled. If no BM q other day, needs suppository or enema to be proactive against opiate induced constipation. 5. Consider workup for other metabolic causes for delirium if it does not improve with treatment of CAP. 6. Delirium may also be hospital-induced. DPOA/Advanced Directives/POLST: 1. Code Status per EMR is DNR/DNI 2. No prior POLST on chart. Pt has a DPOA document completed in 2011. 1st POA is Annmarie Lee, his . Alternate POA is Chantel Springer who can be reached at [phone]. His third choice of decision maker is Annette Benson at [phone]. 3. POA is , Annmarie Lee. Pall Team will meet with her this afternoon . 4. Capacity? Pt is not capacitated currently. Unclear whether he is capacitated at baseline as degree of dementia at baseline is not known. In March 2017, he was able to interact independently with [facility], but fell asleep while talking to her due to SUSANA. In March 2017, he was also interactive with Cardiology at [facility] who completed a DOREEN while he had IV sedation. Hospice eligibility: From his DOREEN in March 2017, although he has severe tricuspid and mitral valve regurgitaion with some moderate right heart failure, his EF then was 55-60% so he would not be a hospice candidate based on his heart failure. His cognition is likely primarily impaired by poor oxygenation as a result of SUSANA with noncompliance of CPAP machine over many months. However, if his family elects to stop dialysis, he is likely eligible for hospice on basis of end-stage renal failure. Although the time frame is difficult to predict as the patient is not anuric, and may have some limited kidney filtering function. We would need advise from nephrology re: prognosis. Family/emotional support: 1. Annmarie Lee: [phone] 2. His friend Jameel Carolina can be reached at [phone]. Counseling: Palliative Care's James Hector and Jackie met today (05/18) with Annmarie Lee. See discussion below. Patient's functional baseline: relates a long progressive cognitive deterioration of her which she attributes to "not getting enough oxygen to his brain." She says he knew he had SUSANA x 10 years but that he is claustrophobic and unable to bear a face mask for many years. Finally in Jul 2016, he had another sleep study and agreed to try the CPAP machine at his ' s urging. Unfortunately it took months to get an mask that fit well and he did not start using the good mask until March 2017. In the interim he has had more episodes of confusion, troubles with walking, falling asleep during the day, hypotension and hypoglycemic episodes (usually after dialysis). Family Goals for patient: after considerable discussion, Mrs. Lee discloses that she can no longer help her transfer, or get up after he falls. She feels unable to care for him at home any longer. She is not sure what to do. She has spoken to her 's children and they have told her it is time to stop dialysis, as his life has had very poor quality and he spends a lot of time in bed at home or in a dialysis bed getting dialyzed. She agrees that it is time to stop dialysis and is sorrowful that this means her will soon. She remembers what a wonderful man he has been to her over the past 10 years and how much she will miss him. POLST: Mrs. Lee signed a POLST today (05/18) that states: DNR/Comfort measures/ No more dialysis/use antibiotics if needed to keep pt comfortable during an infection (determine on case by case need) and artificial tube feeding. Copies given to her. Original put in chart. Copy in Palliative [facility] office. Recommend: We need estimated prognosis from Dr. Mott or another evp managing director on staff here to tell us how long pt might live now that dialysis is being stopped per family request. Discharge Planning: likely to a nursing facility on [facility] near [place]. and CM have been given each other's phone numbers. CM plans to see on SundayMay 19 at 10a.m. in pt's room. Unclear yet, whether pt qualifies for hospice once off dialysis, this decision could be deferred until after pt moved to a facility and his ability to improve in strength monitored, especially if PT feels he could benefit from short term rehab for strengthening first. Spiritual support: Dr. Hector asked hospital otto Светлана to offer support of on SundayMay 21. Problems: Resuscitation Status Resuscitation Status: DNR/DNI:Do Not Resuscitate/Intubate POLST Updates/Changes Previous POLST?: No POLST Last Review Date: May 18, 2017 Antibiotics: Determine Use or Limitations Artificially Admin Nutrition: No Artifical Nutrition by Tube POLST Discussed with: Health Care Agent (DPOAHC), Spouse/Other ( Annmarie Lee who is his primary POA/dpoahc) POLST Review Outcome: New Form Completed . 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 Patient was transferred to [facility] from [facility] due to patient' s need for dialysis that cannot be accomplished at their facility. On initial assessment here, he is confused and thinks he is being held in longterm. No family present with him at first. Later, available and reports he has been more confused in mornings because he is not compliant with his CPAP machine. Hospital Course: He is being treated for community acquired pneumonia with azithromycin/ceftriaxone. He has received prn dilaudid for pain, likely from recent pelvic and trochanter fracture, and his AMS with acute confusion likely related to CAP illness with some question that he has baseline dementia (not clear how severe or changed from baseline). is to bring in home CPAP. Dialysis has been resumed for TTS. Past Medical History Significant PMH Noted: Congestive heart failure Hypertension Bowel disorder SUSANA on CPAP Type 2 diabetes Hypothyroidism ESRD on dialysis Frequent falls Dementia Surgical History Right brachiocephalic arteriovenous fistula (April) Coronary artery bypass graft Valve replacement Femoropopliteal bypass cholecystectomy Knee replacement Family History Unable to obtain due to patient's AMS. Social History Hx Alcohol Use: No Hx Substance Use: No Hx Tobacco Use: No Smoking Status: Never Smoker Allergy Allergies Reviewed: Yes Medications Current Medications: Current Medications Heparin Sodium (Porcine) 5,000 unit Q8 SUBQ Last administered on 05/18/17 08:04 ; Admin Dose 5,000 UNIT; Start 05/17/17 at 00:30 Al Hydrox/Mg Hydrox/Simethicone 30 ml Q6H PRN PO; Start 05/16/17 at 17:45 Ondansetron HCl 4 to 8 mg Q4H PRN IVPUSH; Start 05/16/17 at 17:45 Senna 17.2 mg BID PRN PO; Start 05/16/17 at 17:45 Polyethylene Glycol 17 gm DAILY PRN PO; Start 05/16/17 at 17:45 Morphine Sulfate 1-2 mg Q4H PRN IV Last administered on 05/17/17 03:51; Admin Dose 2 MG; Start 05/16/17 at 17:45 Ceftriaxone Sodium/Dextrose/ Water 50 ml @ 100 mls/hr Q24H IV Last administered on 05/17/17 19:47; Admin Dose 100 MLS/HR; Start 05/16/17 at 18:00 Azithromycin 500 mg DAILY PO Last administered on 05/18/17 08:03; Admin Dose 500 MG; Start 05/17/17 at 08:30 Finasteride 5 mg HS PO Last administered on 05/17/17 19:48; Admin Dose 5 MG; Start 05/17/17 at 21:00 Metoprolol Tartrate 12.5 mg BID PO Last administered on 05/18/17 08:02; Admin Dose 12.5 MG; Start 05/17/17 at 08:30 Pramipexole 1 mg BID PO Last administered on 05/18/17 08:04; Admin Dose 1 MG; Start 05/17/17 at 08:30 Tamsulosin HCl 0.4 mg DAILY PO Last administered on 05/18/17 08:02; Admin Dose 0.4 MG; Start 05/17/17 at 08:30 Torsemide 40 mg DAILY PO Last administered on 05/18/17 08:01; Admin Dose 40 MG ; Start 05/17/17 at 08:30 Non-Formulary Medication 175 mcg DAILY PO; Start 05/17/17 at 08:30; Status UNV Insulin Glargine 20 unit HS SUBQ Last administered on 05/17/17 21:27; Admin Dose 20 UNIT; Start 05/17/17 at 21:00 Insulin Human Lispro Nutritional Dose to be given pr... [facility] SUBQ; Start at 22:00 Levothyroxine Sodium/ Levothyroxine Sodium 175 mcg DAILYAC PO Last administered on 05/18/17 08:01; Admin Dose 175 MCG; Start 05/17/17 at 07:30 Olanzapine 5 mg Q6H PRN IM Last administered on 05/17/17 23:38; Admin Dose 5 MG; Start 05/16/17 at 22:20 Hydromorphone HCl 1 mg Q4H PRN IVPUSH Last administered on 05/18/17 00:54; Admin Dose 1 MG; Start 05/17/17 at 00:30 Oxycodone HCl 5 mg Q4H PRN PO Last administered on 05/18/17 06:08; Admin Dose 5 MG; Start 05/18/17 at 04:50 Scheduled ([tylenol]) 500 MG PO prn Finasteride (Finasteride) 5 Mg Tablet 5 MG PO QPM Insulin Glargine (Lantus U100 Insulin Vial) 100 Unit/Ml Vial 30 UNIT SUBQ DAILY Levothyroxine (Levothyroxine) 175 Mcg Tablet 175 MCG PO DAILY Magnesium Oxide (Magnesium) 250 Mg Tablet 250 MG PO DAILY Metoprolol Tartrate (Metoprolol Tartrate) 25 Mg Tablet 12.5 MG PO BID Oxybutynin Chloride ER (Oxybutynin Chloride ER) 5 Mg Tab.er.24 5 MG PO DAILY Pramipexole Dihydrochloride (Mirapex) 1 Mg Tablet 1 MG PO BID Tamsulosin (Flomax) 0.4 Mg Capsule 0.4 MG PO DAILY Torsemide (Torsemide) 20 Mg Tablet 40 MG PO DAILY Scheduled PRN Tramadol (Tramadol) 50 Mg Tablet 50 MG PO TID PRN PRN For Pain Miscellaneous Medications Oxymetazoline HCl (Nasal Callands Sinus) 30 Ml Callands 30 ML NS Objective Findings Exam Vital Sign - Last Date Time Temp Pulse Resp B/P Pulse Ox O2 Delivery O2 Flow Rate FiO2 05/18/17 04:23 36.7 68 14 113/66 99 OxyMask 3.00 Intake and Output 05/17/17 05/17/17 05/18/17 Cumulative From/Thru 15:00 23:00 07:00 05/16/17 18:10 - 05/18/17 06:55 Intake Total 569 ml 275 ml 1131 ml Output Total 2000 ml 500 ml 2600 ml Balance -2000 ml 69 ml 275 ml -1469 ml Intake Oral 569 ml 200 ml 1006 ml IV Total 75 ml 125 ml Output Urine Total 500 ml 600 ml Ultrafiltrate 2000 ml 2000 ml # Voids 2 2 6 # Bowel Movements 0 0 0 General: Alert, Oriented, Person, No acute distress, Other HEENT: Atraumatic, Other (pupils pinpoint, unable to follow commands for EOM testing) Heart: Normal S1, S2, Systolic Murmur (in tricuspid area), Holosystolic Murmur (in mitral area) Lungs: Clear to Auscultation, Clear to Percussion, Normal Air Movement Abdomen: Bowel Tones x4, Soft, Non Tender Neuro: Arousable, Spontaneous Eye Opening, Other (inattentive to surroundings, hard to get pt to focus on interview questions) Extremities: Warm, Edema (1+) Addtional Information Mini-mental exam: His responses are mixed--> The year is 193, [address] is [place], it is daytime, I live in [place] in a house, 's name is Annmarie. He says they have been 10 years. Inattentive, delirious. baseline some dementia (extent unclear, given active delirium now) Lab/Diagnostics Lab and Imaging results reviewed in detail in EMR. Time spent Total time 70 minutes; >50% face to face with patient and/or family, providing counselling regarding plans and recommendations, and in care coordination with his/her medical teams. I also spent an additional 60 minutes counseling for advanced care planning with the patient/the patients family/the surrogate decision maker. Giulia Hector MD May 18, 2017 08:36
[2017-05-18 09:34] VITALS: BP 107/63; PULSE 85; RESP 18; O2SAT 100
[2017-05-18 10:54] VITALS: PULSE 72
[2017-05-18 11:15] LABS: APPEARANCE,URINE CLEAR (CLEAR,HAZY); COLOR,URINE DARK YELLOW (YELLOW); PH,URINE 5.5 (5.0-8.0)
[2017-05-18 11:16] LABS: OCCULT BLOOD,URINE NEGATIVE (NEGATIVE); UROBILINOGEN,URINE NORMAL (NORMAL)
[2017-05-18] MEDS: oxyCODONE 1 mg/mL 5 mL Liquid PO SCH ×2 (12:06→17:30)
--- NOTE | 2017-05-18 13:01 | PCM.PNNEPH ---
Subjective Date of Service May 18, 2017 Subjective Patient remains quite disoriented and intermittently agitated requiring a sitter at all times. Exam Vital Signs Vital Sign - Last Date Time Temp Pulse Resp B/P Pulse Ox O2 Delivery O2 Flow Rate FiO2 05/18/17 10:54 72 05/18/17 09:34 18 107/63 100 OxyMask 3.00 05/18/17 04:23 36.7 Intake and Output 05/17/17 05/17/17 05/18/17 Cumulative From/Thru 15:00 23:00 07:00 05/16/17 18:10 - 05/18/17 06:55 Intake Total 569 ml 275 ml 1131 ml Output Total 2000 ml 500 ml 2600 ml Balance -2000 ml 69 ml 275 ml -1469 ml Intake Oral 569 ml 200 ml 1006 ml IV Total 75 ml 125 ml Output Urine Total 500 ml 600 ml Ultrafiltrate 2000 ml 2000 ml # Voids 2 2 6 # Bowel Movements 0 0 0 Exam HEENT examination was remarkable for pale sclera. Neck is supple without adenopathy, thyromegaly, or jugular venous distention. Chest shows considerably increased AP diameter. Lungs were clear to auscultation. Heart was regular and rhythmical with a soft systolic murmur. Abdomen is soft without any tenderness, rebound, guarding, masses, or hepatosplenomegaly. Extremities do not show any evidence of any clubbing, cyanosis, or edema. Skin turgor is good. Lab and Diagnostics Result Diagram: 05/17/17 0810 05/17/17 0810 X-Rays, CTs and MRIs PROCEDURE: X-RAY PELVIS, ONE OR TWO VIEWS ([id number]) INDICATIONS: PELVIC FRACTURE IMPRESSION: 1. No acute fractures seen in the pelvis or proximal femurs. If acute fracture is suspected, CT imaging is suggested. 2. Remote avulsion right greater trochanter. 3. Bilateral degenerative sacroiliac arthritis Dictated by: Mike Rose M.D. on 05/17/2017 at 9:31 PROCEDURE: X-RAY CHEST ONE VIEW, PORTABLE ([id number]) INDICATIONS: PNUEMONIA IMPRESSION: Poor inspiratory effort with appearance of mild left basilar/ retrocardiac opacity. This may represent a pneumonia versus atelectasis. Dictated by: Anna Quiroz M.D. on 05/17/2017 at 9:09 Plan Impression Impression #1 end-stage renal disease dialysis dependent #2 chronic progressive dementia with acute features Recommendations #1 I appreciate palliative care is important and their assistance and potential disposition with this unfortunate patient. #2 Allis indicated otherwise he will make arrangements for his dialysis in the morning. Dmitry Mott DO May 18, 2017 13:01
--- NOTE | 2017-05-18 13:59 | PCM.PNMED ---
Subjective Date of Service May 18, 2017 Subjective Patient was agitated overnight. Requiring restraint and a sitter . Seroquel started today. Pramipexole discontinued. Remains afebrile. Remains confused. States he is in [facility]. Exam Vital Signs Vital Sign - Last Date Time Temp Pulse Resp B/P Pulse Ox O2 Delivery O2 Flow Rate FiO2 05/18/17 10:54 72 05/18/17 09:34 18 107/63 100 OxyMask 3.00 05/18/17 04:23 36.7 Intake and Output 05/17/17 05/17/17 05/18/17 Cumulative From/Thru 15:00 23:00 07:00 05/16/17 18:10 - 05/18/17 06:55 Intake Total 569 ml 275 ml 1131 ml Output Total 2000 ml 500 ml 2600 ml Balance -2000 ml 69 ml 275 ml -1469 ml Intake Oral 569 ml 200 ml 1006 ml IV Total 75 ml 125 ml Output Urine Total 500 ml 600 ml Ultrafiltrate 2000 ml 2000 ml # Voids 2 2 6 # Bowel Movements 0 0 0 Exam General: No acute distress, well-developed, well-nourished, elderly male HEENT: Normocephalic, atraumatic. External ears without defect. Pupils equal, round, and reactive to light and accommodation. Anicteric sclerae, moist conjunctivae, and no lid lag. Oropharynx free of erythema and cobble stoning with moist mucosa. Neck: Supple with full range of motion. No jugular venous distension. No bruits. No lymphadenopathy or thyromegaly. Cardiovascular: Regular rate and rhythm with a systolic crescendo decrescendo murmur Pulmonary: Clear to auscultation bilaterally with no crackles, wheezes, or rhonchi. Normal respiratory effort with no use of accessory muscles. Abdomen: Bowel tones present. Soft, nontender, nondistended. No hepatosplenomegaly or masses appreciated. Extremities: No clubbing, cyanosis, edema, or lymphadenopathy appreciated. Skin: Normal temperature, turgor, and texture; no rash, ulcers, or subcutaneous nodules appreciated. Neurological: Cranial nerves grossly intact. Normal muscle strength, tone, and bulk. Reflexes, coordination, and sensory function within normal limits. Psychiatric: Normal mood and affect. Oriented only to self. IVs and Medications Medications Reviewed: Medications were reviewed in detail Lab and Diagnostics Result Diagram: 05/17/17 0810 05/17/17 0810 X-Rays, CTs and MRIs PROCEDURE: X-RAY PELVIS, ONE OR TWO VIEWS ([id number]) INDICATIONS: PELVIC FRACTURE IMPRESSION: 1. No acute fractures seen in the pelvis or proximal femurs. If acute fracture is suspected, CT imaging is suggested. 2. Remote avulsion right greater trochanter. 3. Bilateral degenerative sacroiliac arthritis Dictated by: Mike Rose M.D. on 05/17/2017 at 9:31 PROCEDURE: X-RAY CHEST ONE VIEW, PORTABLE ([id number]) INDICATIONS: PNUEMONIA IMPRESSION: Poor inspiratory effort with appearance of mild left basilar/ retrocardiac opacity. This may represent a pneumonia versus atelectasis. Dictated by: Anna Quiroz M.D. 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 emergency department today due to get another fall today. Patient was transferred to us from [facility] ED due to patient's need for dialysis at this cannot be accomplished at their facility. # Community acquired pneumonia, present on admission, active -Continue azithromycin and ceftriaxone. -CXR consistent with pneumonia -Afebrile, no leukocytosis, patient has change in mental status from baseline. Procalcitonin elevated # delirium on dementia -Patient was agitated overnight. Requiring restraint and a sitter . Seroquel started today. Pramipexole discontinued. -Telemetry for QTC monitoring -Palliative Dr Hector on board # Recent Pelvic and trochanter fracture, present on admission, active -Morphine as needed for pain -Physical therapy evaluation, recommend halfway facility placement # altered mental state on baseline dementia due to CAP -treatment as above Chronic issues, present on admission: # SUSANA on CPAP -We will ask to bring home CPAP # ESRD on hemodialysis TTS -Nephrology notified # Advanced dementia -Social work consultation # Congestive heart failure, not in exacerbation # CAD s/p CABG -Continue home medications # Type 2 diabetes, insulin using -Continue home medications at a 30% reduction # Frequent falls and debilitation -Physical therapy evaluation CODE STATUS: DNR/DNI Patient is admitted under inpatient status with expected length of stay greater than 2 midnights due to severity of presenting symptoms, risk of adverse event, and complexity of treatment plan. Disposition: 1-2 days halfway facility VTE Prophylaxis: Sub-Q Heparin (Unfractionated) VTE Mechanical Devices: Intermittant Pneumatic CD Resuscitation Status: DNR/DNI:Do Not Resuscitate/Intubate José Miguel Bello MD May 18, 2017 13:59
[2017-05-18 14:01] VITALS: BP 129/44; PULSE 73; RESP 20; O2SAT 97
--- NOTE | 2017-05-18 16:32 | NUR ---
Restraints Discontinued Soft restraints discontinued today, 05/18 at 1300. Patient currently cooperative. Care is ongoing.
[2017-05-18 17:36] VITALS: BP 96/63; PULSE 102; RESP 18; O2SAT 92
[2017-05-18] MEDS: cefTRIAXone Inj 2,000 MG in Dextrose 5% Minibag Plus 50 ML IV SCH (17:57)
--- NOTE | 2017-05-18 18:11 | NUR ---
Mentation, Reorientation Patient continues to be somewhat confused and forgetful this shift, requires frequent reorientation and redirection. Care is ongoing.
[2017-05-18 19:33] VITALS: BP 110/70; PULSE 77; RESP 18; O2SAT 100
[2017-05-18] MEDS: Insulin GLARgine 100 Unit/mL Syringe SUBQ SCH (21:20)
[2017-05-19] VITALS (10 sets, daily range): BP systolic 108–131; BP diastolic 66–72; PULSE 71–88; RESP 16–20; O2SAT 85–97
[2017-05-19] MEDS: Heparin 5,000 Unit/mL Inj SUBQ SCH ×3 (01:21→16:22)
[2017-05-19] MEDS: oxyCODONE 1 mg/mL 5 mL Liquid PO SCH ×5 (01:30→22:00)
--- NOTE | 2017-05-19 02:28 | NUR ---
Mentation / pain Alert to self only. States he should be going to [place] soon. Unable to orientate to surroundings at night. Sitter at bedside for safety. Remains restless, no grimace or verbalizations of pain. Seroquel given and patient rested briefly then again restless. 5 mg oxycodone given and patient still restless. No bladder distension - voiding with urinal and assistance. Repositioned but consistently returns to lying on his back. Care ongoing.
[2017-05-19] MEDS: Insulin LISPRO 300 Unit/3 mL Inj SUBQ SCH ×4 (08:00→22:00)
--- NOTE | 2017-05-19 11:01 | NUR ---
Social Work: Initial Assessment/Multi-Disciplinary Rounds D: EMR reviewed. Pt is an 81 y/o male admitted for pneumonia, pleural effusion, and AMS per H&P. SW met with pt and spouse/DPOA at bedside to conduct initial assessment. Pt was not oriented to person, place, or time. SW confirmed that DPOA/advanced directive ppw is in hard chart. Per pt's spouse and diagnosis, pt has advanced dementia. SW completed initial assessment with pt and spouse at bedside. SW explained role and wrote phone number on white board. Pt's insurance is [employer] and [employer]. PCP is Butch Bradley MD. Pt does not have LTC benefits. Pt has VA benefits but is not service connected (per pt's spouse). Pt has hx at a SNF and with HH in [place]. Pt owns a 4WW, FWW, cane, seated walker, bedside commode, and a wheelchair. Pt uses a FWW for ambulation. Pt does not own or use any other DME. Pt needs assistance with all ADLs including toileting, feeding, meal prep, dressing, chores, and transportation. Pt does not drive. Pt is not independent at baseline. Pt lives in a single-story, level, home with 0 steps with his spouse in [place]. Palliative care notified SW regarding discharge planning. Pt's spouse requested to meet with SW. SW met with pt's spouse to discuss discharge planning. Palliative informed SW that pt's spouse and pt have decided to discontinue pt's dialysis. SW confirmed with Palliative that pt and spouse were counseled on risk factors associated with discontinuing dialysis. SW confirmed with pt and spouse that Palliative discussed risks associated with discontinuing dialysis. Pt's spouse stated she was counseled on risks by Palliative. SW met with pt's spouse who stated that it is her and her spouses final decision to discontinue dialysis. Pt's spouse stated that the dialysis is not helping pt and pt's mental functioning and memory has declined since going on dialysis. Pt's spouse stated pt is much better to work with and care for when pt is not on dialysis because dialysis makes pt agitated and confused. Based on Palliative notes, and pt's spouses statements, pt will be terminal without dialysis and spouse was informed that pt will only have 3-6 more weeks to live without dialysis. SW discussed this with pt's spouse. SW asked how pt's spouse felt about caring for pt at home prior to hospital stay. Pt's spouse stated that pt has been increasingly difficult to care for and needs total assistance with ADLs. Pt's spouse stated that she is constantly with pt and monitoring him because he poses a danger to himself if left alone. Pt's spouse stated she sleeps in front of the main entrance to the house at night to make sure he doesn't leave or get up to attempt and cook (pt loves to cook but has left the stove on in previous instances and is no longer able to cook due to safety reasons). Pt's spouse stated she wants the best care for pt and she just can't provide 24/7 care any longer. She doesn't feel she can keep pt safe at home without a caregiver. Pt's spouse states she has done everything she can for pt and just wants him to get better. Pt's spouse suggested that pt's mentation is much better off dialysis and that pt is "very strong willed" and may get better. Pt's spouse stated she "doesn't necessarily believe Palliative's determination of pt being terminal in 3-6 weeks." Pt's spouse stated that pt seems to be doing worse with Dialysis. SW discussed the ramifications of discontinuing dialysis and reinforced Palliatives extension course counselor regarding discontinuation. SW also stated that it is the pt's right to choose to discontinue dialysis. Pt's spouse stated they have made their final decision. Based on pt's choice, SW worked with pt's spouse on discharge planning options without dialysis. SW presented pt's spouse with options after confirming that pt and spouse have agreed to discontinue dialysis and that is their final decision. SW asked pt's spouse if going home was an option. Pt's spouse said she would need help. SW asked if pt's spouse can afford a private caregiver at home. Pt's spouse stated "after thinking about this from a safety perspective, I don't know if going home is going to be the safest option for him and me - even with a private caregiver." Pt's spouse would consider private pay but needs to discuss options with family first. 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 Pt's spouse stated that even with a 24/7 caregiver, she believes pt will need someone who knows how to care for pt's with dementia. SW asked if pt would be willing to consider hospice again. Pt's spouse stated that when pt was on hospice in the past, all they did was come in the home and check vitals. Pt's spouse stated she still had to clean pt after "defecating on the floor." Pt's spouse said she has cared for pt for so long and is struggling emotionally with the difficulties of 24/7 care. SW asked pt's spouse if she would be willing to pay privately for a SNF where Hospice could open with pt at SNF. Pt's spouse stated "the more I think about it, I think I would be open to a 'residential,' but will he just be left alone all day without anyone to watch over him?" SW confirmed that if pt would be provided care by SNF and hospice and pt would not be left alone. SW presented pt's spouse with 3 options to consider. Pt's spouse expressed she had no idea what to do and was feeling overwhelmed. IGGY wrote out options for pt to consider in order to help paint a picture of what each discharge plan might look like. Pt's spouse was appreciative of IGGY writing options out and stated that she felt better seeing some options written out. 1. IGGY presented the idea of pt going home without dialysis and no caregiver - where spouse would continue to care for pt 24/7 as she was doing prior to pt's hospital stay. SW encouraged pt's spouse to consider her and pt's safety at home without a caregiver. IGGY stated to pt's spouse that based on spouses concern for pt's safety - even with spouse providing 24/7 care - SW is concerned for pt and spouses safety. Pt's spouse agreed and stated "option 1 is not an option - I see now that I can no longer take care of him alone." Pt's spouse stated that pt's kids have been involved via phone but live in different states and are not able to help provide care for pt. Pt's spouse agreeable that returning home with pt and caring for pt alone 24/7 is not a safe or viable option anymore. 2. SW presented the idea of taking pt home with 24/7 private pay caregiver and opening hospice. Pt's spouse stated that pt would love to go home but pt's spouse is concerned that hospice wasn't much help in the past and "got in the way." SW went over hospice role and asked if pt would be interested in an informational visit (SW received MD order to coordinate hospice). Pt's spouse said she would not be opposed to having an informational visit but doesn't know if being home with 24/7 caregivers will be enough care for pt. Pt's spouse concerned that pt will bob around and get agitated with a stranger in their home 24 - pt's spouse also concerned about where caregiver would sleep. 3. SW presented option of privately paying for a SNF - pt will be off dialysis and terminal within 3-6 weeks per Palliative. SW confirmed that if pt's spouse is able to pay privately for SNF, hospice can open with pt at SNF. SW explained that insurance won't pay for both SNF and hospice. SW explained that insurance covers non terminally ill pt's with skillable needs for rehabilitation. SW explained that insurance covers Hospice when pt's are terminal and life expectancy is less than 6-months. Pt's spouse understood that hospice is a service that provides pt comfort and care when pt's are terminally ill, with less than 6-months to live. Pt understood that insurance won't cover a SNF rehab facility and Hospice when a pt is terminally ill and does not have a skillable need. SW confirmed with pt's spouse that hospice at home would be covered by insurance - private caregivers would not. SW provided Senior Resource Guide. SW confirmed with pt's spouse that hospice at a SNF would be covered by insurance - SNF stay would not be covered and would be out of pocket. SW confirmed with pt's spouse that pt and spouse can still continue dialysis if they choose. However, if they choose not continue dialysis, pt would not be able to discharge without a safe discharge plan. SW provided "Your Discharge Planning Checklist" and written options (listed above) for pt's spouse to consider and discuss with pt's kids tonight. SW requested pt's spouse think about pt and family decision and SW will follow-up with pt's spouse tomorrow regarding plan moving forward. SW discussed this plan with MD and agreeable. IGGY will continue to follow. A: Pt who has dementia at baseline and has chosen to discontinue dialysis. Pt and pt's spouse counseled by Palliative on risks associated with discontinuing dialysis. Pt's spouse made aware of pt's outlook of 3-6 weeks once dialysis is discontinued. P: SW to follow-up with pt's spouse tomorrow regarding discharge plan. Pt's spouse to consult with pt and family to determine plan moving forward. Pt's spouse provided with various options, Senior Resource Guide, "Your Discharge Planning Checklist," and [place] card with phone number. IGGY also wrote phone number on board and encouraged pt's spouse to contact if any questions came up prior to IGGY meeting with pt's spouse tomorrow morning. CLIVE Perry Addendum: 05/19/17 at 1500 by OLIMPIA LEONARD Amended: Links added.
--- NOTE | 2017-05-19 14:29 | PCM.PNMED ---
Subjective Date of Service May 19, 2017 Subjective decided comfort care only and stop dialysis. Patient remains confused requiring a sitter Exam Vital Signs Vital Sign - Last Date Time Temp Pulse Resp B/P Pulse Ox O2 Delivery O2 Flow Rate FiO2 05/19/17 11:10 36.7 88 18 120/70 94 Room Air 05/19/17 06:24 4.00 Intake and Output 05/18/17 05/18/17 05/19/17 Cumulative From/Thru 15:00 23:00 07:00 05/16/17 18:10 - 05/19/17 06:27 Intake Total 687 ml 1818 ml Output Total 300 ml 2900 ml Balance 387 ml -1082 ml Intake Oral 637 ml 1643 ml IV Total 50 ml 175 ml Output Urine Total 300 ml 900 ml Ultrafiltrate 2000 ml # Voids 2 8 # Bowel Movements 0 0 0 Exam General: No acute distress, well-developed, well-nourished, elderly male HEENT: Normocephalic, atraumatic. External ears without defect. Pupils equal, round, and reactive to light and accommodation. Anicteric sclerae, moist conjunctivae, and no lid lag. Oropharynx free of erythema and cobble stoning with moist mucosa. Neck: Supple with full range of motion. No jugular venous distension. No bruits. No lymphadenopathy or thyromegaly. Cardiovascular: Regular rate and rhythm with a systolic crescendo decrescendo murmur Pulmonary: Clear to auscultation bilaterally with no crackles, wheezes, or rhonchi. Normal respiratory effort with no use of accessory muscles. Abdomen: Bowel tones present. Soft, nontender, nondistended. No hepatosplenomegaly or masses appreciated. Extremities: No clubbing, cyanosis, edema, or lymphadenopathy appreciated. Skin: Normal temperature, turgor, and texture; no rash, ulcers, or subcutaneous nodules appreciated. Neurological: Cranial nerves grossly intact. Normal muscle strength, tone, and bulk. Reflexes, coordination, and sensory function within normal limits. Psychiatric: Normal mood and affect. Oriented only to self. IVs and Medications Medications Reviewed: Medications were reviewed in detail Lab and Diagnostics Result Diagram: 05/17/17 0810 05/17/17 0810 X-Rays, CTs and MRIs PROCEDURE: X-RAY PELVIS, ONE OR TWO VIEWS ([id number]) INDICATIONS: PELVIC FRACTURE IMPRESSION: 1. No acute fractures seen in the pelvis or proximal femurs. If acute fracture is suspected, CT imaging is suggested. 2. Remote avulsion right greater trochanter. 3. Bilateral degenerative sacroiliac arthritis Dictated by: Mike Rose M.D. on 05/17/2017 at 9:31 PROCEDURE: X-RAY CHEST ONE VIEW, PORTABLE ([id number]) INDICATIONS: PNUEMONIA IMPRESSION: Poor inspiratory effort with appearance of mild left basilar/ retrocardiac opacity. This may represent a pneumonia versus atelectasis. Dictated by: Anna Quiroz M.D. 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 Patient was transferred to us from [facility] ED due to patient's need for dialysis at this cannot be accomplished at their facility. # Community acquired pneumonia, present on admission, active -Treated with azithromycin and ceftriaxone. Discontinue now.patient on full comfort care now -CXR consistent with pneumonia -Afebrile, no leukocytosis, patient has change in mental status from baseline. Procalcitonin elevated # delirium on dementia -Patient was agitated overnight. Requiring restraint and a sitter . Seroquel started 05/18. Pramipexole discontinued. -Palliative Dr Hector on board # Recent Pelvic and trochanter fracture, present on admission, active -Morphine as needed for pain # altered mental state on baseline dementia due to CAP -treatment as above Chronic issues, present on admission: # SUSANA on CPAP -We will ask to bring home CPAP # ESRD on hemodialysis TTS - decided to stop dialysis and opted for comfort care only # Advanced dementia -Social work consultation # Congestive heart failure, not in exacerbation # CAD s/p CABG -Continue home medications # Type 2 diabetes, insulin using -Continue home medications at a 30% reduction # Frequent falls and debilitation -Physical therapy evaluation CODE STATUS: DNR/DNI Disposition: Discharge 1-2 days on hospice care once they can take him VTE Prophylaxis: Sub-Q Heparin (Unfractionated) VTE Mechanical Devices: Intermittant Pneumatic CD Resuscitation Status: DNR/DNI:Do Not Resuscitate/Intubate José Miguel Bello MD May 19, 2017 14:29
--- NOTE | 2017-05-19 14:40 | NUR ---
Medication Refusal, Mentation, Activity Patient and have refused majority of medications this shift, MD aware. Patient mostly appropriate to conversation this shift, somewhat disoriented and requiring intermittent reorientation. Patient out of bed to bedside chair. Care is ongoing.
[2017-05-19] MEDS ORDERED: Insulin GLARgine 100 Unit/mL Syringe SUBQ SCH (21:00)
[2017-05-20] VITALS (7 sets, daily range): BP systolic 113–126; BP diastolic 64–71; PULSE 54–83; RESP 16–18; O2SAT 95–98
[2017-05-20] MEDS: Heparin 5,000 Unit/mL Inj SUBQ SCH ×2 (00:30→07:53)
--- NOTE | 2017-05-20 03:04 | NUR ---
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 States he has a little pain in his right hip but it's not bad. Patient able to transfer to commode with full weight bearing and 1 assist. Restless legs at night and repositions frequently. HS Seroquel given and patient then rather groggy. 02 Sats decreased to 85% and oxygen applied at 3 Lt's to bring sats to 95%.
[2017-05-20] MEDS: Insulin LISPRO 300 Unit/3 mL Inj SUBQ SCH ×4 (07:50→22:00)
[2017-05-20] MEDS: oxyCODONE 1 mg/mL 5 mL Liquid PO SCH ×4 (07:50→22:00)
--- NOTE | 2017-05-20 15:35 | NUR ---
MENTATION/ACTIVITY Patient is alert and oriented X 1 only. Follows instructions. Uses his call light appropriately. Does not attempt to get OOB on his own. Patient denies pain. Tolerating liquids PO and his diet well. Denies nausea. No emesis noted. Denies SOB. Patient is able to ambulate with SBA or 1 PA and the FWW to the bathroom. He sat in the chair for his meals. Showered this morning. Tunnel cath in his R chest is still CDI. [place] alarm is on for safety.
--- NOTE | 2017-05-20 15:42 | NUR ---
Social Work: Continued Discharge Planning D: EMR reviewed. Pt is on day 4 of hospitalization. SW met with spouse to determine family choice. Spouse chose 24/7 caregiver with hospice or private pay SNF with hospice. Spouse provided SW with list of SNFs that she would like to explore in [place]. Spouse stated she would prefer a SNF in [place] or [place]. SW to follow-up with spouse regarding private pay costs. SW provided Hospice choicelist. Spouse chose [facility]. Spouse requested Hospice info visit after determining private pay costs for SNF or 24/7 caregiver. Spouse requested that hospice info visit only be scheduled when spouse is available as pt has dementia and spouse is concerned about hospice info visit without spouse being present. SW to research private pay costs and follow-up with spouse tomorrow. A: Pt and family have decided to discontinue dialysis and have been made aware of the risks by Palliative. Pt to discharge to SNF private pay and open with hospice or go home with 24/7 caregiver and hospice per MD. P: SW to follow-up with spouse tomorrow regarding private pay costs for SNFs in [place] or [place]. SW to schedule hospice info visit with [facility] once private pay options have been discussed with spouse and when spouse is available/present. CLIVE Perry
--- NOTE | 2017-05-20 16:00 | NUR ---
ARELI signed - verbal consent from spouse
--- NOTE | 2017-05-20 16:23 | PCM.PNMED ---
Subjective Date of Service May 20, 2017 Subjective Patients more alert and interactive today. Exam Vital Signs Vital Sign - Last Date Time Temp Pulse Resp B/P Pulse Ox O2 Delivery O2 Flow Rate FiO2 05/20/17 07:49 36.7 73 16 126/71 97 Room Air 05/20/17 06:32 3.00 Intake and Output 05/19/17 05/19/17 05/20/17 Cumulative From/Thru 15:00 23:00 07:00 05/16/17 18:10 - 05/20/17 06:36 Intake Total 2420 ml 420 ml 4658 ml Output Total 550 ml 325 ml 3775 ml Balance 1870 ml 95 ml 883 ml Intake Oral 2420 ml 420 ml 4483 ml IV Total 175 ml Output Urine Total 550 ml 325 ml 1775 ml Ultrafiltrate 2000 ml # Voids 2 2 12 # Bowel Movements 1 0 1 Exam General: No acute distress, well-developed, well-nourished, elderly male HEENT: Normocephalic, atraumatic. External ears without defect. Pupils equal, round, and reactive to light and accommodation. Anicteric sclerae, moist conjunctivae, and no lid lag. Oropharynx free of erythema and cobble stoning with moist mucosa. Neck: Supple with full range of motion. No jugular venous distension. No bruits. No lymphadenopathy or thyromegaly. Cardiovascular: Regular rate and rhythm with a systolic crescendo decrescendo murmur Pulmonary: Clear to auscultation bilaterally with no crackles, wheezes, or rhonchi. Normal respiratory effort with no use of accessory muscles. Abdomen: Bowel tones present. Soft, nontender, nondistended. No hepatosplenomegaly or masses appreciated. Extremities: No clubbing, cyanosis, edema, or lymphadenopathy appreciated. Skin: Normal temperature, turgor, and texture; no rash, ulcers, or subcutaneous nodules appreciated. Neurological: Cranial nerves grossly intact. Normal muscle strength, tone, and bulk. Reflexes, coordination, and sensory function within normal limits. Psychiatric: Normal mood and affect. Oriented only to self. IVs and Medications Medications Reviewed: Medications were reviewed in detail Lab and Diagnostics Result Diagram: 05/17/17 0810 05/17/17 0810 X-Rays, CTs and MRIs PROCEDURE: X-RAY PELVIS, ONE OR TWO VIEWS ([id number]) INDICATIONS: PELVIC FRACTURE IMPRESSION: 1. No acute fractures seen in the pelvis or proximal femurs. If acute fracture is suspected, CT imaging is suggested. 2. Remote avulsion right greater trochanter. 3. Bilateral degenerative sacroiliac arthritis Dictated by: Mike Rose M.D. on 05/17/2017 at 9:31 PROCEDURE: X-RAY CHEST ONE VIEW, PORTABLE ([id number]) INDICATIONS: PNUEMONIA IMPRESSION: Poor inspiratory effort with appearance of mild left basilar/ retrocardiac opacity. This may represent a pneumonia versus atelectasis. Dictated by: Anna Quiroz M.D. 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 Patient was transferred to us from [facility] ED due to patient's need for dialysis at this cannot be accomplished at their facility. # Community acquired pneumonia, present on admission, active -Treated with azithromycin and ceftriaxone. Discontinued now.patient on full comfort care now -CXR consistent with pneumonia -Afebrile, no leukocytosis, patient has change in mental status from baseline. Procalcitonin elevated # delirium on dementia -Patient was agitated overnight. Required restraint and a sitter . Seroquel started 05/18. Pramipexole discontinued. -Palliative Dr Hector on board # Recent Pelvic and trochanter fracture, present on admission, active -Morphine as needed for pain # altered mental state on baseline dementia due to CAP -treatment as above Chronic issues, present on admission: # SUSANA on CPAP -We will ask to bring home CPAP # ESRD on hemodialysis TTS - decided to stop dialysis and opted for comfort care only # Advanced dementia -Social work consultation # Congestive heart failure, not in exacerbation # CAD s/p CABG -Continue home medications # Type 2 diabetes, insulin using -Continue home medications at a 30% reduction # Frequent falls and debilitation -Physical therapy evaluation CODE STATUS: DNR/DNI Disposition: Patient has advanced dementia with behavioral disturbance. opted for comfort care only . Discontinued dialysis. Unable to care to home on hospice due to advanced dementia. She is planning for him to go to SNF on private pay for hospice. She will make that decision tomorrow and get back to us. Patient can be discharged tomorrow to SNF on hospice VTE Prophylaxis: Sub-Q Heparin (Unfractionated) VTE Mechanical Devices: Intermittant Pneumatic CD Resuscitation Status: DNR/DNI:Do Not Resuscitate/Intubate José Miguel Bello MD May 20, 2017 16:23
--- NOTE | 2017-05-21 03:19 | NUR ---
Activity Patient drowsy at start of shift, noted irregular heart beats. Continued denial of CP, SOB, and abdominal discomfort. Tolerated ambulation with aide well. Awoke several times throughout shift got very little sleep. Care continues.
[2017-05-21 04:58] VITALS: BP 120/84; PULSE 83; RESP 18; O2SAT 98
[2017-05-21] MEDS: oxyCODONE 1 mg/mL 5 mL Liquid PO SCH ×4 (08:00→21:32)
[2017-05-21] MEDS: Insulin LISPRO 300 Unit/3 mL Inj SUBQ SCH ×4 (08:00→21:34)
[2017-05-21 10:20] VITALS: BP 112/66; PULSE 79; RESP 18; O2SAT 95
--- NOTE | 2017-05-21 11:51 | NUR ---
Spoke with Tahmina in patient access at [facility] and this patient is non service connected but holds [employer] M[employer]. 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
--- NOTE | 2017-05-21 12:06 | PCM.PNMED ---
Subjective Date of Service May 21, 2017 Subjective Patient seen and examined today. Says he feels good. Eating breakfast, interactive. Alert. Exam Vital Signs Vital Sign - Last Date Time Temp Pulse Resp B/P Pulse Ox O2 Delivery O2 Flow Rate FiO2 05/21/17 11:07 Room Air 05/21/17 10:20 36.7 79 18 112/66 95 05/20/17 06:32 3.00 Intake and Output 05/20/17 05/20/17 05/21/17 Cumulative From/Thru 15:00 23:00 07:00 05/16/17 18:10 - 05/21/17 06:33 Intake Total 450 ml 5108 ml Output Total 100 ml 3875 ml Balance 350 ml 1233 ml Intake Oral 450 ml 4933 ml IV Total 175 ml Output Urine Total 100 ml 1875 ml Ultrafiltrate 2000 ml # Voids 12 # Bowel Movements 1 Exam General: No acute distress, well-developed, well-nourished, elderly male HEENT: Normocephalic, atraumatic. External ears without defect. Pupils equal, round, and reactive to light and accommodation. Anicteric sclerae, moist conjunctivae, and no lid lag. Oropharynx free of erythema and cobble stoning with moist mucosa. Neck: Supple with full range of motion. No jugular venous distension. No bruits. No lymphadenopathy or thyromegaly. Cardiovascular: Regular rate and rhythm with a systolic crescendo decrescendo murmur Pulmonary: Clear to auscultation bilaterally with no crackles, wheezes, or rhonchi. Normal respiratory effort with no use of accessory muscles. Abdomen: Bowel tones present. Soft, nontender, nondistended. No hepatosplenomegaly or masses appreciated. Extremities: No clubbing, cyanosis, edema, or lymphadenopathy appreciated. Skin: Normal temperature, turgor, and texture; no rash, ulcers, or subcutaneous nodules appreciated. Neurological: Cranial nerves grossly intact. Normal muscle strength, tone, and bulk. Reflexes, coordination, and sensory function within normal limits. Psychiatric: Normal mood and affect. Oriented only to self. Lab and Diagnostics Result Diagram: 05/17/17 0810 05/17/17 0810 X-Rays, CTs and MRIs PROCEDURE: X-RAY PELVIS, ONE OR TWO VIEWS ([id number]) INDICATIONS: PELVIC FRACTURE IMPRESSION: 1. No acute fractures seen in the pelvis or proximal femurs. If acute fracture is suspected, CT imaging is suggested. 2. Remote avulsion right greater trochanter. 3. Bilateral degenerative sacroiliac arthritis Dictated by: Mike Rose M.D. on 05/17/2017 at 9:31 PROCEDURE: X-RAY CHEST ONE VIEW, PORTABLE ([id number]) INDICATIONS: PNUEMONIA IMPRESSION: Poor inspiratory effort with appearance of mild left basilar/ retrocardiac opacity. This may represent a pneumonia versus atelectasis. Dictated by: Anan Quiroz M.D. 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 Patient was transferred to us from [facility] ED due to patient's need for dialysis at this cannot be accomplished at their facility. # Community acquired pneumonia, present on admission, active -Treated with azithromycin and ceftriaxone. Discontinued now.patient on full comfort care now -CXR consistent with pneumonia -Afebrile, no leukocytosis, patient has change in mental status from baseline. Procalcitonin elevated # delirium on dementia -Patient was agitated overnight. Required restraint and a sitter . Seroquel started 05/18. Pramipexole discontinued. -Palliative Dr Hector on board # Recent Pelvic and trochanter fracture, present on admission, active -Morphine as needed for pain #encephalopathy on baseline dementia due to CAP -treatment as above Chronic issues, present on admission: # SUSANA on CPAP -We will ask to bring home CPAP # ESRD on hemodialysis TTS - decided to stop dialysis and opted for comfort care only # Advanced dementia -Social work consultation # Congestive heart failure, not in exacerbation # CAD s/p CABG -Continue home medications # Type 2 diabetes, insulin using -Continue home medications at a 30% reduction # Frequent falls and debilitation -Physical therapy evaluation CODE STATUS: DNR/DNI Disposition: Patient has advanced dementia with behavioral disturbance. opted for comfort care only . Discontinued dialysis. Unable to care to home on hospice due to advanced dementia. She is planning for him to go to SNF on private pay for hospice. Pending family's decision VTE Prophylaxis: Sub-Q Heparin (Unfractionated) VTE Mechanical Devices: Intermittant Pneumatic CD Resuscitation Status: DNR/DNI:Do Not Resuscitate/Intubate Time spent 35 mins Tacos Wilkins MD May 21, 2017 12:06
--- NOTE | 2017-05-21 14:13 | NUR ---
Social Work: Continued Discharge Planning D: EMR reviewed. Pt is on day 5 of hospitalization. IGGY met with pt's spouse Bentley to discuss SNF private pay with hospice v 24/7 caregiver at home with hospice. Bentley no longer wants 24/7 caregiver at home and doesn't think pt should return home due to safety concerns. SW brought up the option of pt going on Comfort Care without hospice and discussed [facility]. Bentley would like pt to go on Comfort Care and is very agreeable to this idea. SW informed Bentley that insurance won't cover Comfort [facility] and hospice. Bentley agreeable for pt not to go on hospice and go on comfort care. Bentley requested SW look at [facility] and other facilities in [place] if [facility] is not an option. SW updated [employer] [employer] and requested [employer] to send pt referral to Com[facility] facilities per pt's spouse request. [employer] confirmed request and will update SW with options. SW to update spouse once [employer] updates SW. A: Pt for whom comfort care has been deemed medically necessary P: Pt's spouse Bentley agreeable for pt not to go on hospice and go on comfort care. Bentley requested SW look at [facility] and other facilities in [place] if [facility] is not an option. SW updated [employer] and requested [employer] to send pt referral to Com[facility] facilities per pt's spouse request. [employer] confirmed request and will update SW with options. SW to update spouse once [employer] updates SW. CLIVE Perry
--- NOTE | 2017-05-21 14:15 | NUR ---
Faxed clinicals to [facility] per [facility] CONSULTANT and order
[2017-05-21 16:45] VITALS: BP 123/71; PULSE 87; RESP 18; O2SAT 97
--- NOTE | 2017-05-21 18:13 | NUR ---
Pain/BM Pt c/o L hip pain today; 2 PO Tylenol given for pain. Effective. Pt had 2 large, formed, dark brown BM's today during shift. Will continue to monitor with frequent rounds.
[2017-05-21 20:28] VITALS: BP 108/66; PULSE 77; RESP 16; O2SAT 95
--- NOTE | 2017-05-22 04:58 | NUR ---
Pain pt reported hip/leg pain rated 4/10. pt request Tylenol, but it wasn't available. Administered PO oxycodone. pt respond pain relief by resting quietly in bed with eyes closed. pt up to the bedside to use urinal with SBA to 1 PA. Will continue to monitor.
[2017-05-22 06:18] VITALS: BP 112/72; RESP 18; O2SAT 96
[2017-05-22] MEDS: oxyCODONE 1 mg/mL 5 mL Liquid PO SCH ×2 (08:00→12:00)
[2017-05-22] MEDS: Insulin LISPRO 300 Unit/3 mL Inj SUBQ SCH ×2 (08:00→12:00)
--- NOTE | 2017-05-22 11:36 | NUR ---
[facility] will accept patient today. Gave private pay cost to [employer] to go over with as well. $250 per day for semi private and $280 for private room. [facility] do not have appropriate bed for this patient. Updated [facility]
[2017-05-22 12:17] VITALS: BP 103/64; PULSE 81; RESP 20; O2SAT 94
--- NOTE | 2017-05-22 13:06 | NUR ---
Social Work- Readiness for Discharge/ Multidisciplinary Rounds Data: EMR reviewed. Pt is on day 6 of hospitalization for Pneumonia, Pleural Effusion, AMS. Per multidisciplinary rounds, pt is medically stable for discharge. Discharge orders are active. IGGY was notified that pt has been accepted at [facility] and would be able to arrive today. Private pay costs were quoted at $250 per day for a semi-private room and $280 per day for a private room. SW spoke with pt's in the conference room regarding these costs and the potential that would be able to discharge today. Pt's is agreeable to these costs and agreeable to pt's discharge today. Pt's agreed to have [facility] continue with discharge to SNF. Pt's would like pt to be able to transport with her POV. IGGY faxed PASRR to Laurie at [facility]. NEWSPAPER DELIVERY DRIVER compiling packet and scripts for transfer. IGGY will continue to follow. Assessment: Pt for whom SNF is medically necessary. Plan: Pt's is likely going to transfer pt to [facility] in [place] today. Discharge orders are active. Paperwork in chart. PASRR has been faxed. IGGY will continue to follow. CLIVE Hernandez
--- NOTE | 2017-05-22 13:08 | PCM.DIMED ---
Discharge Instructions Date of Service May 22, 2017 Dates of Hospitalization May 16, 2017 at 17:15 Discharge Diagnosis Discharge Diagnosis Dementia Frequent fall ESRD Remote avulsion right greater trochanter Medication Instructions Additional med instructions Blood glucose check with meals. Diet Discharge Diet: Renal Diet Patient Instructions Additional Information Comfort care as per family () Tacos Wilkins MD May 22, 2017 13:08
[2017-05-22] MEDS ORDERED: QUET25TA73 PO (13:16)
[2017-05-22] MEDS ORDERED: OXYC5TAB72 PO (13:16)
[2017-05-22] MEDS ORDERED: OXYC5SOL11 PO (13:16)
--- NOTE | 2017-05-22 13:24 | PCM.DC.MED ---
Discharge Summary Date of Service May 22, 2017 Dates of Hospitalization Date of Hospital Admission May 16, 2017 at 17:15 Date of Discharge: May 22, 2017 Providers: Admitting Physician: Ankita Haider DO Primary Care Physician: Butch Bradley MD Attending Physician: Danielle Blackmon MD Diagnosis at Time of Discharge Diagnosis at Time of Discharge Dementia Frequent fall ESRD Remote avulsion right greater trochanter Consultations Palliative care Procedures XRay, CTs & MRIs PROCEDURE: X-RAY PELVIS, ONE OR TWO VIEWS ([id number]) INDICATIONS: PELVIC FRACTURE IMPRESSION: 1. No acute fractures seen in the pelvis or proximal femurs. If acute fracture is suspected, CT imaging is suggested. 2. Remote avulsion right greater trochanter. 3. Bilateral degenerative sacroiliac arthritis Dictated by: Mike Rose M.D. on 05/17/2017 at 9:31 PROCEDURE: X-RAY CHEST ONE VIEW, PORTABLE ([id number]) INDICATIONS: PNUEMONIA IMPRESSION: Poor inspiratory effort with appearance of mild left basilar/ retrocardiac opacity. This may represent a pneumonia versus atelectasis. Dictated by: Anna Quiroz M.D. 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 Patient was transferred to [facility] from [facility] due to patient' s need for dialysis that cannot be accomplished at their facility. On initial assessment here, he is confused and thinks he is being held in senior care. No family present with him at first. Later, available and reports he has been more confused in mornings because he is not compliant with his CPAP machine. Hospital Course: He is being treated for community acquired pneumonia with azithromycin/ceftriaxone. He has received prn dilaudid for pain, likely from recent pelvic and trochanter fracture, and his AMS with acute confusion likely related to CAP illness with some question that he has baseline dementia (not clear how severe or changed from baseline). is to bring in home CPAP. Dialysis has been resumed for TTS. 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 Patient was transferred to us from [facility] ED due to patient's need for dialysis at this cannot be accomplished at their facility. # Community acquired pneumonia, present on admission, active -Treated with azithromycin and ceftriaxone. Discontinued now.patient on full comfort care now -CXR consistent with pneumonia -Afebrile, no leukocytosis, patient has change in mental status from baseline. # delirium on dementia -Patient was agitated overnight. Required restraint and a sitter . Seroquel started 05/18. Pramipexole discontinued. -Palliative Dr Hector on board # Recent Pelvic and trochanter fracture, present on admission, active -oxycodone for pain #encephalopathy on baseline dementia due to CAP -treatment as above Chronic issues, present on admission: # SUSANA on CPAP # ESRD on hemodialysis TTS - decided to stop dialysis and opted for comfort care only # Advanced dementia # Congestive heart failure, not in exacerbation # CAD s/p CABG -Continue home medications # Type 2 diabetes, insulin using # Frequent falls and debilitation -2/2 trochantric fracture and dementia CODE STATUS: DNR/DNI Exam Vital Signs (Last) Date Time Temp Pulse Resp B/P Pulse Ox O2 Delivery O2 Flow Rate FiO2 05/22/17 12:17 36.5 81 20 103/64 94 Room Air 05/20/17 06:32 3.00 Test 05/16/17 18:35 05/17/17 08:10 05/18/17 10:34 Procalcitonin 0.20ng/mL (0.00-0.08) White Blood Count 5.7th/mm3 (3.8-10.1) Red Blood Count 3.78mil/mm3 (4.40-5.80) Hemoglobin 13.1g/dL (13.8-17.2) Hematocrit 39.1% (41.0-50.0) Mean Corpuscular Volume 103.4fL (81-100) Mean Corpuscular Hemoglobin 34.7pg (27.0-35.0) Mean Corpuscular Hemoglobin Concent 33.5% (32.0-37.0) Red Cell Distribution Width 14.1% (12.3-15.4) Platelet Count 137bil/L (150-400) Neutrophils (%) (Auto) 55.5% (40-74) Lymphocytes (%) (Auto) 25.9% (14-46) Monocytes (%) (Auto) 11.5% (4-12) Eosinophils (%) (Auto) 6.0% (0-5) Basophils (%) (Auto) 0.9% (0-3) Sodium Level 142mEq/L (134-144) Potassium Level 3.9mEq/L (3.5-5.2) Chloride Level 102mEq/L (97-108) Carbon Dioxide Level 23mmol/L (18-29) Blood Urea Nitrogen 37mg/dL (8-27) Creatinine 2.92mg/dL (0.76-1.27) Estimat Glomerular Filtration Rate 22mL/min (>59) Glucose Level 90mg/dL (60-99) Calcium Level 10.1mg/dL (8.5-10.1) Phosphorus Level 4.0mg/dL (2.5-4.9) Magnesium Level 2.3mg/dL (1.6-2.6) Total Bilirubin 1.3mg/dL (0.0-1.2) Aspartate Amino Transf (AST/SGOT) 37U/L (0-50) Alanine Aminotransferase (ALT/SGPT) 18U/L (0-44) Alkaline Phosphatase 226U/L (25-160) Total Protein 7.1g/dL (6.4-8.4) Albumin 3.1g/dL (3.4-5.0) Urine Color Dark yellow (YELLOW) Urine Appearance Clear (CLEAR,HAZY) Urine pH 5.5 (5.0-8.0) Urine Specific [place] 1.020 (1.003-1.035) Urine Protein Tracemg/dL (NEG,TRACE) Urine Glucose (UA) Negativemg/dL (NEGATIVE) Urine Ketones Negativemg/dL (NEGATIVE) Urine Occult Blood Negative (NEGATIVE) Urine Nitrite Negative (NEGATIVE) Urine Bilirubin Negative (NEGATIVE) Urine Urobilinogen Normalmg/dL (NORMAL) Urine Leukocyte Esterase Negative (NEGATIVE) Urine RBC 0-2/hpf (0-2) Urine WBC 0-5/hpf (0-5) Urine Epithelial Cells Occasional/hpf (NONE-MOD) Urine Crystals None seen (NONE SEEN) Urine Bacteria Few/hpf (NONE-FEW) Urine Hyaline Casts Occasional/lpf (NONE) Urine Granular Casts None seen (NONE SEEN) Urine Waxy Casts None seen (NONE SEEN) Urine Red Blood Cell Casts None seen (NONE SEEN) Urine White Blood Cell Casts None seen (NONE SEEN) Urine Mucus None seen (None Seen) Urine Trichomonas None seen (NONE SEEN) Urine Yeast None (NONE SEEN) Urinalysis Comment None Urine Culture Reflexed Not indicated Discharge Medications Discharge Medications ([tylenol]) 500 MG PO prn (Reported) Finasteride (Finasteride) 5 Mg Tablet 5 MG PO QPM (Reported) Insulin Glargine (Lantus U100 Insulin Vial) 100 Unit/Ml Vial 30 UNIT SUBQ DAILY (Reported) Levothyroxine (Levothyroxine) 175 Mcg Tablet 175 MCG PO DAILY (Reported) Magnesium Oxide (Magnesium) 250 Mg Tablet 250 MG PO DAILY (Reported) Metoprolol Tartrate (Metoprolol Tartrate) 25 Mg Tablet 12.5 MG PO BID (Reported ) Oxybutynin Chloride ER (Oxybutynin Chloride ER) 5 Mg Tab.er.24 5 MG PO DAILY ( Reported) Quetiapine Fumarate (Quetiapine Fumarate) 25 Mg Tablet 12.5 MG PO BID Prescribed by: DANIELLE BLACKMON MD Tamsulosin (Flomax) 0.4 Mg Capsule 0.4 MG PO DAILY (Reported) Torsemide (Torsemide) 20 Mg Tablet 40 MG PO DAILY (Reported) oxyCODONE (oxyCODONE) 5 Mg/5 Ml Solution 5 MG PO [facility]HS Prescribed by: DANIELLE BLACKMON MD As needed Tramadol (Tramadol) 50 Mg Tablet 50 MG PO TID PRN PRN For Pain Prescribed by: DANIELLE BLACKMON MD oxyCODONE (oxyCODONE) 5 Mg Tablet 5 MG PO Q4H PRN PRN For Moderate Pain Prescribed by: DANIELLE BLACKMON MD Miscellaneous Medications Oxymetazoline HCl (Nasal [place] Sinus) 30 Ml [place] 30 ML NS (Reported) Followup Plan Discharge Diet: Renal Diet Danielle Blackmon MD May 22, 2017 13:24
[2017-05-22] MEDS ORDERED: TRAM50TA2 PO (14:59)
--- NOTE | 2017-05-22 15:14 | NUR ---
Discharge Pt discharged to [facility] for comfort care at 1510 hrs. Left with spouse via private vehicle. Dialysis catheter left in place per hospitalist's orders. VSS. All personal possessions sent with pt. Report called to Beti at [facility].
--- NOTE | 2017-05-22 16:32 | NUR ---
Social Work- Discharge Data: Pt discharged to [facility] today via POV. [facility] created packet and faxed orders. Orders were signed by . Scripts faxed. Pt was transported with his via POV. No additional discharge needs identified. Assessment: Pt for whom SNF was medically necessary Plan: Pt discharged today to [facility] at 1500. Packet sent with pt's . Pt discharged via POV. No additional SW needs identified. Agustina Nowak MSW
== END 2017-05-22 15:05 | DRG 535 ==
LOC: OSC 17:15
PROVIDERS: ADMIT Internal Medicine; ATTEND Internal Medicine
DX: S72.101A Unspecified trochanteric fracture of right femur, initial encounter for closed fracture (principal); N18.6 End stage renal disease; J18.9 Pneumonia, unspecified organism; I13.0 Hypertensive heart and chronic kidney disease with heart failure and stage 1 through stage 4 chronic kidney disease, or unspecified chronic kidney disease; F03.91 Unspecified dementia, unspecified severity, with behavioral disturbance; I25.10 Atherosclerotic heart disease of native coronary artery without angina pectoris; Z99.2 Dependence on renal dialysis; E03.9 Hypothyroidism, unspecified; G47.33 Obstructive sleep apnea (adult) (pediatric); I50.9 Heart failure, unspecified; Z79.4 Long term (current) use of insulin; E11.21 Type 2 diabetes mellitus with diabetic nephropathy; Z51.5 Encounter for palliative care